=== PATIENT | male | born 1950 | race Caucasian/White ===

== ENCOUNTER 2017-01-17 16:24 | Emergency (ER) | payer MEDICARE, OTHER ==
[2017-01-17 16:30] VITALS: BP 143/83; PULSE 83; RESP 14; TEMP 98.5; O2SAT 99
--- NOTE | 2017-01-17 17:03 | C.PDOC ---
History Of Present Illness 66 yr old male presents to the ER requesting refills of endocet. Patient states he ran out yesterday and his PMD is out of town and is unable to get a new prescription until 01/29. Patient complains of chronic lower back pain. Denies fever, chills, chest pain SOB, weakness or numbness. REQUESTING REFILL OF ENDOCET. RAN OUT YESTERDAY. PMD IS OUT OF TOWN. UNABLE TO GET NEW RX UNTIL 01/29. CO CHRONIC LBP. EXAM NEG Time Seen by Provider: 01/17/17 16:58 Chief Complaint (Nursing): Med Refill History Per: Patient Onset/Duration Of Symptoms: Persistent (Chronic ) Current Symptoms Are (Timing): Still Present Past Medical History Reviewed: Historical Data, Nursing Documentation, Vital Signs Vital Signs: Last Vital Signs Temp 98.5 F 01/17/17 16:28 Pulse 83 01/17/17 16:28 Resp 14 01/17/17 16:28 BP 143/83 01/17/17 16:28 Pulse Ox 99 01/17/17 17:15 - Medical History PMH: Diabetes, HTN, Hypercholesterolemia Surgical History: Cholecystectomy (1994) - [facility] Procedures DETACHMENT AT RIGHT 5TH TOE, COMPLETE, OPEN APPROACH (02/18/16) EXCISION OF R FOOT SUBCU/FASCIA, OPEN APPROACH (03/13/16) EXCISION OF RIGHT METATARSAL, OPEN APPROACH (03/13/16) EXTRACTION OF R FOOT SUBCU/FASCIA, OPEN APPROACH (03/13/16) FLUOROSCOPY OF AORTA AND BILATERAL LOWER EXTREMITY ARTERIES (11/25/15) FLUOROSCOPY OF SUPERIOR VENA CAVA, GUIDANCE (02/18/16) INSERTION OF INFUSION DEV INTO SUP VENA CAVA, PERC APPROACH (02/18/16) Family History: States: Hypertension - Social History Hx Tobacco Use: Yes Hx Alcohol Use: No Hx Substance Use: No - Immunization History Hx Tetanus Toxoid Vaccination: Yes Hx Influenza Vaccination: Yes Hx Pneumococcal Vaccination: Yes Review Of Systems Except As Marked, All Systems Reviewed And Found Negative. Constitutional: Negative for: Fever, Chills Cardiovascular: Negative for: Chest Pain Respiratory: Negative for: Shortness of Breath Musculoskeletal: Positive for: Back Pain (Chronic lower back pain ) Neurological: Negative for: Weakness, Numbness Physical Exam - Physical Exam Appears: Well, Non-toxic, No Acute Distress Skin: Warm, Dry Head: Atraumatic, Normacephalic Extremity: Normal ROM, No Swelling Neurological/Psych: Oriented x3, Normal Speech, Normal Motor ED Course And Treatment O2 Sat by Pulse Oximetry: 99 Progress - Re-Evaluation Re-evaluation Note: [place] RX REVIEWED Filled Written Drug QTY Days Prescriber 01/16/2017 11/18/2016 ZOLPIDEM TARTRATE 10 MG TABLET 30.0 30 AN [facility] 01/16/2017 11/18/2016 ALPRAZOLAM 1 MG TABLET 60.0 30 AN [facility] [id number] 12/30/2016 12/27/2016 ENDOCET 10-325 MG TABLET 60.0 15 AN [facility] 12/17/2016 11/18/2016 ZOLPIDEM TARTRATE 10 MG TABLET 30.0 30 AN [facility] 12/17/2016 11/18/2016 ALPRAZOLAM 1 MG TABLET 60.0 30 AN [facility] [id number] 12/17/2016 12/13/2016 ENDOCET 10-325 MG TABLET 60.0 15 AN [facility] 11/19/2016 11/18/2016 ZOLPIDEM TARTRATE 10 MG TABLET 30.0 30 AN [facility] 11/19/2016 11/18/2016 ALPRAZOLAM 1 MG TABLET 60.0 30 AN [facility] [id number] 11/19/2016 11/19/2016 ENDOCET 10-325 MG TABLET 120.0 30 01/17/17 17:09 PT ADVISED OF [place] NARCOTIC LAW. PT NOW STATES DR MADRID IS NO LONGER HIS PMD AND STATES IS WAITING FOR NEW PMD. ADVISED STILL NOT ABLE TO FILL CHRONIC PAIN RX. 01/17/17 17:14 PT LEFT PRIOR TO RECEIVING DOSE, REGISTRATION. - Data Reviewed Data Reviewed: Other ([place]) Disposition Counseled Patient/Family Regarding: Diagnosis, Need For Followup - Disposition Referrals: YOUR,PMD [Other] Disposition: HOME/ ROUTINE Disposition Time: 17:10 Condition: GOOD Additional Instructions: USTED RUCKER SIDO ADVERTIDO DE LAS RESTRICCIONES DE DERECHO ESTATAL RELACIONADAS CON LA RECARGA DE MEDICINA DE DOLOR NARCOTICO. SEGUIMIENTO CON CABRERA PMD. Instructions: Chronic Back Pain (ED), Medicine Refill (ED) Print Language: MONGOLIAN - Clinical Impression Clinical Impression: Chronic pain, Medication refill - Scribe Statement The provider has reviewed the documentation as recorded by the Scribe Gaviota Burrell Provider Attestation: All medical record entries made by the Scribe were at my direction and personally dictated by me. I have reviewed the chart and agree that the record accurately reflects my personal performance of the history, physical exam, medical decision making, and the department course for this patient. I have also personally directed, reviewed, and agree with the discharge instructions and disposition.
[2017-01-17] MEDS ORDERED: Oxycodone/Acetaminophen 5/325 mg Tab PO STA (17:09)
== END 2017-01-17 17:20 | disposition home or self-care (01) ==
LOC: C.ER 16:24
DX: M54.5 Low back pain (principal); G89.29 Other chronic pain

== ENCOUNTER 2018-10-12 14:34 | Inpatient (IN) | payer MEDICARE, OTHER ==
[2018-10-12 15:04] VITALS: BMI 29.2
[2018-10-12] MEDS ORDERED: Sodium Chloride 0.9% 1,000 ML IV STA (15:54)
--- NOTE | 2018-10-12 15:56 | C.PDOC ---
History Of Present Illness 68 y/o M c PMHx DM p/w extremity cramps, numbness, and weakness x over 1 month. States gradually worsening to the extent that patient can no longer walk safely and has been falling frequently, most recently yesterday. Denies any injury from falls. Denies any asymmetrical symptoms. States symptoms began with a red eye, was seen by ophtho, and states during their evaluation, he had a blood pressure cuff used on his leg and the symptoms began after that. States could not go to [facility] because he can not safely walk to his office without falling. PMD [facility] Time Seen by Provider: 10/12/18 14:58 Chief Complaint (Nursing): Weakness/Neurological Deficit Past Medical History Vital Signs: Last Vital Signs Temp 98.1 F 10/12/18 15:04 Pulse 76 10/12/18 15:04 Resp 20 10/12/18 15:04 BP 156/74 H 10/12/18 15:04 Pulse Ox 99 10/12/18 15:04 - Medical History PMH: Diabetes, HTN, Hypercholesterolemia Denies: Chronic Kidney Disease Surgical History: Cholecystectomy (1994) - [facility] Procedures DETACHMENT AT RIGHT 5TH TOE, COMPLETE, OPEN APPROACH (02/18/16) EXCISION OF R FOOT SUBCU/FASCIA, OPEN APPROACH (03/13/16) EXCISION OF RIGHT METATARSAL, OPEN APPROACH (03/13/16) EXTRACTION OF R FOOT SUBCU/FASCIA, OPEN APPROACH (03/13/16) FLUOROSCOPY OF AORTA AND BILATERAL LOWER EXTREMITY ARTERIES (11/25/15) FLUOROSCOPY OF SUPERIOR VENA CAVA, GUIDANCE (02/18/16) INSERTION OF INFUSION DEV INTO SUP VENA CAVA, PERC APPROACH (02/18/16) Family History: States: Hypertension - Social History Hx Tobacco Use: Yes Hx Alcohol Use: No Hx Substance Use: No - Immunization History Hx Tetanus Toxoid Vaccination: Yes Hx Influenza Vaccination: Yes Hx Pneumococcal Vaccination: Yes Review Of Systems Except As Marked, All Systems Reviewed And Found Negative. Constitutional: Negative for: Fever Cardiovascular: Negative for: Chest Pain Physical Exam - Physical Exam Additional Physical Exam Comments: Gen: NAD Head: NC/AT Eyes: PERRL ENT: MMM Neck: Supple Chest: No tenderness CV: Regular rate Lungs: CTA b/l Abd: Soft, NT Back: No midline tenderness Extremities: No tenderness, FROM x 4 Skin: No rash Neuro: Alert, sensation to light touch bilaterally x 4. Moves all 4 extremities. Gait unsteady. ED Course And Treatment - Laboratory Results Result Diagrams: 10/12/18 16:05 10/12/18 16:05 O2 Sat by Pulse Oximetry: 99 Medical Decision Making Medical Decision Making: EKG Results NSR [address]/ T wave changes CT-Head Results Date of service: 10/12/2018 PROCEDURE: CT HEAD WITHOUT CONTRAST. HISTORY: extremity numbness, gait imbalance COMPARISON: None available. TECHNIQUE: Axial computed tomography images were obtained through the head/brain without intravenous contrast. Radiation dose: Total exam DLP = 1088.72 mGy-cm. This CT exam was performed using one or more of the following dose reduction techniques: Automated exposure control, adjustment of the mA and/or kV according to patient size, and/or use of iterative reconstruction technique. FINDINGS: HEMORRHAGE: No intracranial hemorrhage. BRAIN: Diffuse atrophy with prominence of the ventricles and sulci noted. No mass effect or edema. Intracranial atherosclerosis. Scattered periventricular and subcortical white matter hypodensities, which are nonspecific, but often seen with chronic microvascular ischemic disease. 3 mm right basal ganglia lacunar type infarct. Please note that MRI with diffusion imaging is more sensitive in the detection of acute ischemic event. VENTRICLES: No hydrocephalus. CALVARIUM: Unremarkable. PARANASAL SINUSES: Unremarkable as visualized. No significant inflammatory changes. MASTOID AIR CELLS: Unremarkable as visualized. No inflammatory changes. OTHER FINDINGS: None. IMPRESSION: Generalized atrophy. Scattered nonspecific white matter changes. 3 mm right basal ganglia lacunar type infarct appears chronic. Patient unsafe for discharge, could not ambulate in ED. Dr. Duque accepts patient to his service. vice president planning paged. Disposition - Disposition Disposition: HOSPITALIZED Disposition Time: 16:55 Condition: STABLE Forms: [employer] (Kyrgyz) - Clinical Impression Clinical Impression: Decreased ambulation status
[2018-10-12 16:09] LABS: BASO % 0.2 % (0.0-2.0); EOS # 0.1 K/uL (0.0-0.7); EOS % 0.5 % (0.0-4.0); LYMPH # 1.6 K/uL (1.0-4.3); LYMPH % 16.3 % (20.0-40.0); MEAN CORPUSCULAR HEMOGLOBIN 30.2 pg (27.0-31.0); MEAN PLATELET VOLUME 9.3 fL (7.2-11.7); MONO # 0.4 K/uL (0.0-0.8); MONO % 4.3 % (0.0-10.0); NEUT # 7.5 K/uL (1.8-7.0); NEUT % 78.7 % (50.0-75.0); RBC 4.69 Mil/uL (4.40-5.90); RED CELL DISTRIBUTION WIDTH 13.7 % (11.5-14.5); WHITE BLOOD COUNT 9.5 K/uL (4.8-10.8)
[2018-10-12 16:15] LABS: HEMOGLOBIN 14.2 g/dL (12.0-18.0); MEAN CELL VOLUME 91.6 fL (80.0-94.0)
[2018-10-12 16:17] LABS: INR 1.1; PROTHROMBIN TIME 11.9 SECONDS (9.7-12.2)
[2018-10-12 16:28] LABS: ALB/GLOB RATIO 1.6 (1.0-2.1); ALBUMIN 4.8 g/dL (3.5-5.0); ALT/SGPT 26 U/L (21-72); AST/SGOT 34 U/L (17-59); BLOOD UREA NITROGEN 21 mg/dL (9-20); CALCIUM 10.2 mg/dl (8.6-10.4); GFR NON-AFRICAN AMERICAN > 60
[2018-10-12 16:38] LABS: B-TYPE NATRIURETIC PEPTIDE 79.4 pg/mL (0-900)
--- NOTE | 2018-10-12 16:38 | CT ---
Date of service: 10/12/2018 PROCEDURE: CT HEAD WITHOUT CONTRAST. HISTORY: extremity numbness, gait imbalance COMPARISON: None available. TECHNIQUE: Axial computed tomography images were obtained through the head/brain without intravenous contrast. Radiation dose: Total exam DLP = 1088.72 mGy-cm. This CT exam was performed using one or more of the following dose reduction techniques: Automated exposure control, adjustment of the mA and/or kV according to patient size, and/or use of iterative reconstruction technique. FINDINGS: HEMORRHAGE: No intracranial hemorrhage. BRAIN: Diffuse atrophy with prominence of the ventricles and sulci noted. No mass effect or edema. Intracranial atherosclerosis. Scattered periventricular and subcortical white matter hypodensities, which are nonspecific, but often seen with chronic microvascular ischemic disease. 3 mm right basal ganglia lacunar type infarct. Please note that MRI with diffusion imaging is more sensitive in the detection of acute ischemic event. VENTRICLES: No hydrocephalus. CALVARIUM: Unremarkable. PARANASAL SINUSES: Unremarkable as visualized. No significant inflammatory changes. MASTOID AIR CELLS: Unremarkable as visualized. No inflammatory changes. OTHER FINDINGS: None. IMPRESSION: Generalized atrophy. Scattered nonspecific white matter changes. 3 mm right basal ganglia lacunar type infarct appears chronic.
[2018-10-12 16:41] LABS: CK-MB 2.32 ng/mL (0.0-3.38)
--- NOTE | 2018-10-12 17:40 | RAD ---
Date of service: 10/12/2018 HISTORY: extremity numbness/cramping COMPARISON: 03/13/2016 FINDINGS: LUNGS: No active pulmonary disease. PLEURA: No significant pleural effusion identified, no pneumothorax apparent. CARDIOVASCULAR: No atherosclerotic calcification present No radiographic findings to suggest acute or significant cardiovascular disease. OSSEOUS STRUCTURES: No significant abnormalities. VISUALIZED UPPER ABDOMEN: Normal. OTHER FINDINGS: None. IMPRESSION: No active disease. No significant interval change compared to the prior examination(s).
[2018-10-12 17:44] LABS: SQUAMOUS EPITHIAL < 1 /hpf (0-5); URINE BILIRUBIN NEGATIVE (NEGATIVE); URINE BLOOD NEGATIVE (NEGATIVE); URINE CLARITY Hazy (Clear); URINE COLOR Yellow (YELLOW); URINE GLUCOSE (UA) 3+ mg/dL (Normal); URINE LEUKOCYTE ESTERASE NEG Leu/uL (Negative); URINE PROTEIN 2+ mg/dL (NEGATIVE)
[2018-10-12] MEDS ORDERED: Dextrose 50% SYRINGE Inj (50 ml) IV PRN (18:25)
[2018-10-12] MEDS ORDERED: Glucagon Recombinant 1 mg Inj IM PRN (18:25)
--- NOTE | 2018-10-12 18:34 | CP.PCM.HP ---
History of Present Illness - History of Present Illness History of Present Illness: 68 year old male with past medical history of Diabetes Type II; HTN; Stroke (2018); HLD; Glaucoma; neuropathy presents to the ER with lower extremity weakness. Patient states for the past few months he has been having difficulty walking. However the last 3 weeks he feels like he cannot stand by himself as his legs feel week. He states he usually uses a 3 point cane but that has not been helping him at all. He denies chest pain, shortness of breath, palpitations, numbness or tingling, nausea, vomiting, fever, chills, diarrhea or constipation. PMD: Dr. 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 bone culture taken of right 5th metatarsal head Medications: Enalapril 20mg po daily; Crestor 10mg po HS; Aspirin 81mg daily; Insulin Allergies: NKDA Social History: Lives alone in apartment with many stairs; used to smoke for 15 years but has quit for 15+ years; denies alcohol or illicit drug use. Present on Admission - Present on Admission Any Indicators Present on Admission: No Review of Systems - Constitutional Constitutional: absent: Chills, Fever - Cardiovascular Cardiovascular: absent: Chest Pain, Dyspnea, Leg Edema, Palpitations - Respiratory Respiratory: absent: Dyspnea - Gastrointestinal Gastrointestinal: absent: Abdominal Pain, Constipation, Diarrhea, Nausea, Vomiting - Genitourinary Genitourinary: absent: Dysuria - Musculoskeletal Musculoskeletal: Limited Range of Motion, Muscle Weakness. absent: Numbness, T ingling - Neurological Neurological: Weakness. absent: Dizziness, Numbness, Headaches, Syncope, Tingling Past Patient History - Infectious Disease Hx of Infectious Diseases: None - Past Medical History & Family History Past Medical History?: Yes - Past Social History Smoking Status: Former Smoker - CARDIAC Hx Hypercholesterolemia: Yes Hx Hypertension: Yes - PULMONARY Hx Respiratory Disorders: No - NEUROLOGICAL Hx Neurological Disorder: No - HEENT Hx HEENT Problems: No - RENAL Hx Chronic Kidney Disease: No - ENDOCRINE/METABOLIC Hx Diabetes Mellitus Type 2: Yes - HEMATOLOGICAL/ONCOLOGICAL Hx Blood Disorders: No - INTEGUMENTARY Hx Dermatological Problems: No - MUSCULOSKELETAL/RHEUMATOLOGICAL Hx Musculoskeletal Disorders: No Hx Falls: No - GASTROINTESTINAL Hx Gastrointestinal Disorders: No - GENITOURINARY/GYNECOLOGICAL Hx Genitourinary Disorders: No - PSYCHIATRIC Hx Substance Use: No - SURGICAL HISTORY Hx Cholecystectomy: Yes (1994) - ANESTHESIA Hx Anesthesia: Yes Hx Anesthesia Reactions: No Hx Malignant Hyperthermia: No Meds Allergies/Adverse Reactions: Allergies Allergy/AdvReac Type Severity Reaction Status Date / Time No Known Allergies Allergy Verified 10/12/18 15:02 Physical Exam - Constitutional Appears: Non-toxic, No Acute Distress, Older Than Stated Age - Head Exam Head Exam: ATRAUMATIC, NORMAL INSPECTION - Eye Exam Eye Exam: EOMI, Normal appearance, PERRL Pupil Exam: NORMAL ACCOMODATION - ENT Exam ENT Exam: Mucous Membranes Moist - Respiratory Exam Respiratory Exam: Clear to Auscultation Bilateral, NORMAL BREATHING PATTERN - Cardiovascular Exam Cardiovascular Exam: REGULAR RHYTHM, +S1, +S2. absent: JVD - GI/Abdominal Exam GI & Abdominal Exam: Normal Bowel Sounds, Soft. absent: Tenderness - Extremities Exam Extremities exam: Positive for: normal capillary refill, pedal pulses present. Negative for: full ROM, pedal edema, tenderness Additional comments: Right foot s/p remval of 5th metatarsal (02/2016) - Neurological Exam Neurological exam: Alert, CN II-XII Intact, Oriented x3 - Expanded Neurological Exam Expanded Patient oriented to: person, place, time Cranial nerves: EOM's Intact: Normal Upper motor neuron: Babinski Sign: Normal Neuro motor strength exam: Left Upper Extremity: 3, Right Upper Extremity: 3, Left Lower Extremity: 2/1, Right Lower Extremity: 2/1 Coma Scale Eye Opening: SPONTANEOUS Coma Scale Motor Response: OBEYS COMMANDS Coma Scale Verbal: Oriented Coma Scale Total: 15 - Psychiatric Exam Psychiatric exam: Anxious - Skin Skin Exam: Dry, Normal Color Results - Vital Signs Recent Vital Signs: Last Vital Signs Temp 98.7 F 10/12/18 18:00 Pulse 62 10/12/18 18:00 Resp 18 10/12/18 18:00 BP 169/76 H 10/12/18 18:00 Pulse Ox 99 10/12/18 18:00 - Labs Result Diagrams: 10/12/18 16:05 10/12/18 16:05 Labs: Laboratory Results - last 24 hr 10/12/18 10/12/18 10/12/18 16:05 16:05 16:05 WBC 9.5 RBC 4.69 Hgb 14.2 D Hct 43.0 MCV 91.6 D MCH 30.2 MCHC 33.0 RDW 13.7 Plt Count 247 D MPV 9.3 Neut % (Auto) 78.7 H Lymph % (Auto) 16.3 L Grady % (Auto) 4.3 Eos % (Auto) 0.5 Baso % (Auto) 0.2 Neut # (Auto) 7.5 H Lymph # (Auto) 1.6 Grady # (Auto) 0.4 Eos # (Auto) 0.1 Baso # (Auto) 0.0 PT 11.9 INR 1.1 APTT 32 Sodium 137 Potassium 4.3 Chloride 98 Carbon Dioxide 30 Anion Gap 14 BUN 21 H Creatinine 1.1 Est GFR ( Amer) > 60 Est GFR (Non-Af Amer) > 60 Random Glucose 274 H D Calcium 10.2 Total Bilirubin 0.5 AST 34 ALT 26 Alkaline Phosphatase 64 Total Creatine Kinase 211 H CK-MB (Mass) 2.32 Troponin I < 0.0120 NT-Pro-B Natriuret Pep 79.4 Total Protein 7.8 Albumin 4.8 Globulin 3.0 Albumin/Globulin Ratio 1.6 Urine Color Urine Clarity Urine pH Ur Specific Calmar Urine Protein Urine Glucose (UA) Urine Ketones Urine Blood Urine Nitrate Urine Bilirubin Urine Urobilinogen Ur Leukocyte Esterase Urine WBC (Auto) Urine RBC (Auto) Ur Squamous Epith Cells 10/12/18 17:16 WBC RBC Hgb Hct MCV MCH MCHC RDW Plt Count MPV Neut % (Auto) Lymph % (Auto) Grady % (Auto) Eos % (Auto) Baso % (Auto) Neut # (Auto) Lymph # (Auto) Grady # (Auto) Eos # (Auto) Baso # (Auto) PT INR APTT Sodium Potassium Chloride Carbon Dioxide Anion Gap BUN Creatinine Est GFR ( Amer) Est GFR (Non-Af Amer) Random Glucose Calcium Total Bilirubin AST ALT Alkaline Phosphatase Total Creatine Kinase CK-MB (Mass) Troponin I NT-Pro-B Natriuret Pep Total Protein Albumin Globulin Albumin/Globulin Ratio Urine Color Yellow Urine Clarity Hazy Urine pH 5.0 Ur Specific Calmar 1.022 Urine Protein 2+ H Urine Glucose (UA) 3+ H Urine Ketones Trace Urine Blood Negative Urine Nitrate Negative Urine Bilirubin Negative Urine Urobilinogen 2.0 Ur Leukocyte Esterase Neg Urine WBC (Auto) 1 Urine RBC (Auto) 1 Ur Squamous Epith Cells < 1 Assessment & Plan - Assessment and Plan (Free Text) Assessment: Upper/Lower Extremity Weakness - secondary to possible TIA - Neuro Consult: Dr. Jackson --> help appreciated - Head CT: No intracranial hemorrhage. Generalized atrophy. Scattered nonspecific white matter changes. 3 mm right basal ganglia lacunar type infarct appears chronic. - f/u venous doppler - Neuro Checks q4h - f/u RPR; B12 - PT/OT Eval/Treat - Aspirin 81mg daily Diabetes mellitus with neuropathy - insulin sliding scale coverage - Lantus 10units HS - Crestor 10mg HS - Accuchecks - Hypoglycemia Protocol Hypertension - Enalapril 20mg daily Prophylaxis - GI prophylaxis: not indicated - Heparin SC q8h Case discussed with Dr. Dunia Perez PGY-2
[2018-10-12] MEDS: (Novolin R) Insulin Human Regular 100 units/ml vial SC SCH (21:24)
[2018-10-12] MEDS: (Lantus) Insulin Glargine, Recombinant SC SCH (21:34)
[2018-10-13 07:52] LABS: BASO % 0.4 % (0.0-2.0); EOS # 0.1 K/uL (0.0-0.7); HEMOGLOBIN 13.4 g/dL (12.0-18.0); LYMPH # 1.6 K/uL (1.0-4.3); LYMPH % 18.4 % (20.0-40.0); MEAN CELL VOLUME 91.5 fL (80.0-94.0); MEAN CORPUSCULAR HEMOGLOBIN 30.5 pg (27.0-31.0); MEAN CORPUSCULAR HGB CONC 33.4 g/dL (33.0-37.0); MEAN PLATELET VOLUME 9.3 fL (7.2-11.7); MONO # 0.4 K/uL (0.0-0.8); MONO % 4.9 % (0.0-10.0); NEUT # 6.7 K/uL (1.8-7.0); NEUT % 75.3 % (50.0-75.0); RBC 4.38 Mil/uL (4.40-5.90); RED CELL DISTRIBUTION WIDTH 13.7 % (11.5-14.5); WHITE BLOOD COUNT 8.9 K/uL (4.8-10.8)
[2018-10-13] MEDS: (Novolin R) Insulin Human Regular 100 units/ml vial SC SCH ×4 (08:01→21:44)
[2018-10-13 08:03] LABS: ALB/GLOB RATIO 1.6 (1.0-2.1); ALBUMIN 4.1 g/dL (3.5-5.0); ALT/SGPT 26 U/L (21-72); AST/SGOT 34 U/L (17-59); BLOOD UREA NITROGEN 26 mg/dL (9-20); CALCIUM 9.6 mg/dl (8.6-10.4); GFR NON-AFRICAN AMERICAN > 60; HDL CHOLESTEROL 44 mg/dL (30-70)
[2018-10-13 08:13] LABS: LDL CHOLESTEROL 63 mg/dL (0-129)
--- NOTE | 2018-10-13 11:37 | CP.PCM.PN ---
Subjective - Date & Time of Evaluation Date of Evaluation: 10/13/18 Time of Evaluation: 11:33 - Subjective Subjective: Augustine Pringle PGY1 Progress Note for Dr. Duque Pt reports continuation of his lower and upper extremity weakness, which has been going on for the past 3 months but worsened over the past couple of weeks. He reports lower back pain as well. He also complains of numbness and tingling in the b/l hands and feet. He says he is not able to walk up stairs. He denies headache, dizziness, chest pain, shortness of breath, urinary or bowel incontinence, nausea, vomiting, diarrhea, difficulty speaking or swallowing. Objective - Vital Signs/Intake and Output Vital Signs (last 24 hours): Temp Pulse Resp BP Pulse Ox 97.7 F 68 20 149/62 100 10/13/18 07:25 10/13/18 07:25 10/13/18 07:25 10/13/18 09:39 10/13/18 07:25 Intake and Output: 10/13/18 10/13/18 06:59 18:59 Intake Total 360 Output Total 950 Balance -590 - Medications Medications: Current Medications Aspirin (Ecotrin) 81 mg PO DAILY [facility] Last Admin: 10/13/18 09:39 Dose: 81 mg Dextrose (Dextrose 50% Inj) 0 ml IV STAT PRN; Protocol PRN Reason: Hypoglycemia Protocol Dextrose (Glutose 15) 0 gm PO ONCE PRN; Protocol PRN Reason: Hypoglycemia Protocol Enalapril Maleate (Vasotec) 20 mg PO DAILY [facility] Last Admin: 10/13/18 09:39 Dose: 20 mg Glucagon (Glucagen Diagnostic Kit) 0 mg IM STAT PRN; Protocol PRN Reason: Hypoglycemia Protocol Heparin Sodium (Porcine) (Heparin) 5,000 units SC Q8 [facility] Last Admin: 10/13/18 06:16 Dose: 5,000 units Dextrose (Dextrose 5% In Water 1000 Ml) 1,000 mls @ 0 mls/hr IV .Q0M PRN; Protocol PRN Reason: Hypoglycemia Protocol Influenza Virus Vaccine (Flucelvax Quad 9808-0060 Syr) 60 mcg IM .ONCE ONE Stop: 10/14/18 12:01 Insulin Glargine (Lantus) 10 unit SC HS [facility] Last Admin: 10/12/18 21:34 Dose: 10 unit Insulin Human Regular (Novolin R) 0 unit SC ACHS [facility]; Protocol Last Admin: 10/13/18 08:01 Dose: 2 unit Pneumococcal Polyvalent Vaccine (Pneumovax 23 Vaccine) 0.5 ml IM .ONCE ONE Stop: 10/14/18 10:01 Rosuvastatin Calcium (Crestor) 10 mg PO [facility] Last Admin: 10/12/18 21:34 Dose: 10 mg - Labs Labs: 10/13/18 07:41 10/13/18 07:41 PT 11.9 SECONDS (9.7-12.2) 10/12/18 16:05 INR 1.1 10/12/18 16:05 APTT 32 SECONDS (21-34) 10/12/18 16:05 - Constitutional Appears: Well, No Acute Distress - Head Exam Head Exam: ATRAUMATIC, NORMOCEPHALIC - Eye Exam Eye Exam: EOMI, Normal appearance, PERRL - ENT Exam ENT Exam: Mucous Membranes Moist - Respiratory Exam Respiratory Exam: Clear to Ausculation Bilateral, NORMAL BREATHING PATTERN. absent: Rales, Rhonchi, Wheezes - Cardiovascular Exam Cardiovascular Exam: REGULAR RHYTHM, +S1, +S2. absent: Gallop, Rubs, Murmur - GI/Abdominal Exam GI & Abdominal Exam: Soft, Normal Bowel Sounds. absent: Distended, Tenderness - Extremities Exam Extremities Exam: Normal Inspection - Back Exam Back Exam: paraspinal tenderness - Neurological Exam Neurological Exam: Alert, Awake, Oriented x3 Neuro motor strength exam: Left Upper Extremity: 4, Right Upper Extremity: 4, Left Lower Extremity: 3, Right Lower Extremity: 3 - Psychiatric Exam Psychiatric exam: Normal Affect, Normal Mood - Skin Skin Exam: Normal Color Assessment and Plan - Assessment and Plan (Free Text) Assessment: 68yo M with PMH of DM2, CVA, HTN, HLD, glaucoma, neuropathy presenting with lower extremity weakness, admitted for CVA r/o. CT showing chronic changes. Plan for [facility]. Plan: Upper/Lower Extremity Weakness - Neuro Consult: Dr. Jackson --> help appreciated - Head CT: No intracranial hemorrhage. Generalized atrophy. Scattered nonspecific white matter changes. 3 mm right basal ganglia lacunar type infarct appears chronic. - f/u venous doppler - f/u MRI L-spine - Neuro Checks q4h - f/u RPR - B12 wnl - PT/OT Eval/Treat - Aspirin 81mg daily Diabetes mellitus with neuropathy - HbA1c 11.5 - insulin sliding scale coverage - Lantus 10units HS - Accuchecks - Hypoglycemia Protocol HLD - high TG - Crestor 10mg HS Hypertension - Enalapril 20mg daily Prophylaxis - GI prophylaxis: not indicated - Heparin SC q8h CCD Dispo: Follow up remaining imaging. Plan for [facility] upon d/c Patient seen and case discussed with Dr. Duque
--- NOTE | 2018-10-13 12:12 | CP.PCM.CON ---
History of Present Illness - History of Present Illness History of Present Illness: Neurology consult dictated. Mr. Pelaez appears to have acute weakness, proximal in lower limbs bl. Plan: 1. MRI L s spine stat 2. Physical therapy Thank you Dr. Jackson Neurology Past Patient History - Infectious Disease Hx of Infectious Diseases: None - Past Medical History & Family History Past Medical History?: Yes - Past Social History Smoking Status: Former Smoker - CARDIAC Hx Hypercholesterolemia: Yes Hx Hypertension: Yes - PULMONARY Hx Respiratory Disorders: No - NEUROLOGICAL Hx Neurological Disorder: No - HEENT Hx HEENT Problems: No - RENAL Hx Chronic Kidney Disease: No - ENDOCRINE/METABOLIC Hx Diabetes Mellitus Type 2: Yes - HEMATOLOGICAL/ONCOLOGICAL Hx Blood Disorders: No - INTEGUMENTARY Hx Dermatological Problems: No - MUSCULOSKELETAL/RHEUMATOLOGICAL Hx Musculoskeletal Disorders: No Hx Falls: No - GASTROINTESTINAL Hx Gastrointestinal Disorders: No - GENITOURINARY/GYNECOLOGICAL Hx Genitourinary Disorders: No - PSYCHIATRIC Hx Substance Use: No - SURGICAL HISTORY Hx Cholecystectomy: Yes (1994) - ANESTHESIA Hx Anesthesia: Yes Hx Anesthesia Reactions: No Hx Malignant Hyperthermia: No Meds Allergies/Adverse Reactions: Allergies Allergy/AdvReac Type Severity Reaction Status Date / Time No Known Allergies Allergy Verified 10/12/18 15:02 - Medications Medications: Current Medications Aspirin (Ecotrin) 81 mg PO DAILY [facility] Last Admin: 10/13/18 09:39 Dose: 81 mg Dextrose (Dextrose 50% Inj) 0 ml IV STAT PRN; Protocol PRN Reason: Hypoglycemia Protocol Dextrose (Glutose 15) 0 gm PO ONCE PRN; Protocol PRN Reason: Hypoglycemia Protocol Enalapril Maleate (Vasotec) 20 mg PO DAILY [facility] Last Admin: 10/13/18 09:39 Dose: 20 mg Glucagon (Glucagen Diagnostic Kit) 0 mg IM STAT PRN; Protocol PRN Reason: Hypoglycemia Protocol Heparin Sodium (Porcine) (Heparin) 5,000 units SC Q8 [facility] Last Admin: 10/13/18 06:16 Dose: 5,000 units Dextrose (Dextrose 5% In Water 1000 Ml) 1,000 mls @ 0 mls/hr IV .Q0M PRN; Protocol PRN Reason: Hypoglycemia Protocol Influenza Virus Vaccine (Flucelvax Quad [id number] Syr) 60 mcg IM .ONCE ONE Stop: 10/14/18 12:01 Insulin Glargine (Lantus) 10 unit SC [facility] Last Admin: 10/12/18 21:34 Dose: 10 unit Insulin Human Regular (Novolin R) 0 unit SC ACHS [facility]; Protocol Last Admin: 10/13/18 08:01 Dose: 2 unit Pneumococcal Polyvalent Vaccine (Pneumovax 23 Vaccine) 0.5 ml IM .ONCE ONE Stop: 10/14/18 10:01 Rosuvastatin Calcium (Crestor) 10 mg PO HS [facility] Last Admin: 10/12/18 21:34 Dose: 10 mg Results - Vital Signs Recent Vital Signs: Last Vital Signs Temp 97.7 F 10/13/18 07:25 Pulse 68 10/13/18 07:25 Resp 20 10/13/18 07:25 BP 149/62 10/13/18 09:39 Pulse Ox 100 10/13/18 07:25 - Labs Result Diagrams: 10/13/18 07:41 10/13/18 07:41 Labs: Laboratory Results - last 24 hr 10/12/18 10/12/18 10/12/18 14:58 16:05 16:05 WBC 9.5 RBC 4.69 Hgb 14.2 D Hct 43.0 MCV 91.6 D MCH 30.2 MCHC 33.0 RDW 13.7 Plt Count 247 D MPV 9.3 Neut % (Auto) 78.7 H Lymph % (Auto) 16.3 L [place] % (Auto) 4.3 Eos % (Auto) 0.5 Baso % (Auto) 0.2 Neut # (Auto) 7.5 H Lymph # (Auto) 1.6 [place] # (Auto) 0.4 Eos # (Auto) 0.1 Baso # (Auto) 0.0 PT 11.9 INR 1.1 APTT 32 Sodium Potassium Chloride Carbon Dioxide Anion Gap BUN Creatinine Est GFR ( Amer) Est GFR (Non-Af Amer) POC Glucose (mg/dL) 272 H Random Glucose Hemoglobin A1c Calcium Phosphorus Magnesium Total Bilirubin AST ALT Alkaline Phosphatase Total Creatine Kinase CK-MB (Mass) Troponin I NT-Pro-B Natriuret Pep Total Protein Albumin Globulin Albumin/Globulin Ratio Triglycerides Cholesterol LDL Cholesterol Direct HDL Cholesterol Vitamin B12 Urine Color Urine Clarity Urine pH Ur Specific [place] Urine Protein Urine Glucose (UA) Urine Ketones Urine Blood Urine Nitrate Urine Bilirubin Urine Urobilinogen Ur Leukocyte Esterase Urine WBC (Auto) Urine RBC (Auto) Ur Squamous Epith Cells 02/10/12/18 10/12/18 16:05 17:16 21:11 WBC RBC Hgb Hct MCV MCH MCHC RDW Plt Count MPV Neut % (Auto) Lymph % (Auto) [place] % (Auto) Eos % (Auto) Baso % (Auto) Neut # (Auto) Lymph # (Auto) [place] # (Auto) Eos # (Auto) Baso # (Auto) PT INR APTT Sodium 137 Potassium 4.3 Chloride 98 Carbon Dioxide 30 Anion Gap 14 BUN 21 H Creatinine 1.1 Est GFR ( Amer) > 60 Est GFR (Non-Af Amer) > 60 POC Glucose (mg/dL) 262 H Random Glucose 274 H D Hemoglobin A1c Calcium 10.2 Phosphorus Magnesium Total Bilirubin 0.5 AST 34 ALT 26 Alkaline Phosphatase 64 Total Creatine Kinase 211 H CK-MB (Mass) 2.32 Troponin I < 0.0120 NT-Pro-B Natriuret Pep 79.4 Total Protein 7.8 Albumin 4.8 Globulin 3.0 Albumin/Globulin Ratio 1.6 Triglycerides Cholesterol LDL Cholesterol Direct HDL Cholesterol Vitamin B12 Urine Color Yellow Urine Clarity Hazy Urine pH 5.0 Ur Specific [place] 1.022 Urine Protein 2+ H Urine Glucose (UA) 3+ H Urine Ketones Trace Urine Blood Negative Urine Nitrate Negative Urine Bilirubin Negative Urine Urobilinogen 2.0 Ur Leukocyte Esterase Neg Urine WBC (Auto) 1 Urine RBC (Auto) 1 Ur Squamous Epith Cells < 1 10/13/18 10/13/18 10/13/18 06:34 07:41 07:41 WBC 8.9 RBC 4.38 L Hgb 13.4 Hct 40.1 MCV 91.5 MCH 30.5 MCHC 33.4 RDW 13.7 Plt Count 225 MPV 9.3 Neut % (Auto) 75.3 H Lymph % (Auto) 18.4 L [place] % (Auto) 4.9 Eos % (Auto) 1.0 Baso % (Auto) 0.4 Neut # (Auto) 6.7 Lymph # (Auto) 1.6 [place] # (Auto) 0.4 Eos # (Auto) 0.1 Baso # (Auto) 0.0 PT INR APTT Sodium 136 Potassium 4.2 Chloride 103 Carbon Dioxide 28 Anion Gap 9 L BUN 26 H Creatinine 1.0 Est GFR ( Amer) > 60 Est GFR (Non-Af Amer) > 60 POC Glucose (mg/dL) 175 H Random Glucose 153 H D Hemoglobin A1c Calcium 9.6 Phosphorus 3.3 Magnesium 1.9 Total Bilirubin 0.3 AST 34 ALT 26 Alkaline Phosphatase 67 Total Creatine Kinase CK-MB (Mass) Troponin I NT-Pro-B Natriuret Pep Total Protein 6.6 Albumin 4.1 Globulin 2.6 Albumin/Globulin Ratio 1.6 Triglycerides 210 H Cholesterol 126 LDL Cholesterol Direct 63 HDL Cholesterol 44 Vitamin B12 972 H Urine Color Urine Clarity Urine pH Ur Specific [place] Urine Protein Urine Glucose (UA) Urine Ketones Urine Blood Urine Nitrate Urine Bilirubin Urine Urobilinogen Ur Leukocyte Esterase Urine WBC (Auto) Urine RBC (Auto) Ur Squamous Epith Cells 10/13/18 10/13/18 07:41 11:46 WBC RBC Hgb Hct MCV MCH MCHC RDW Plt Count MPV Neut % (Auto) Lymph % (Auto) [place] % (Auto) Eos % (Auto) Baso % (Auto) Neut # (Auto) Lymph # (Auto) [place] # (Auto) Eos # (Auto) Baso # (Auto) PT INR APTT Sodium Potassium Chloride Carbon Dioxide Anion Gap BUN Creatinine Est GFR ( Amer) Est GFR (Non-Af Amer) POC Glucose (mg/dL) 261 H Random Glucose Hemoglobin A1c 11.5 H Calcium Phosphorus Magnesium Total Bilirubin AST ALT Alkaline Phosphatase Total Creatine Kinase CK-MB (Mass) Troponin I NT-Pro-B Natriuret Pep Total Protein Albumin Globulin Albumin/Globulin Ratio Triglycerides Cholesterol LDL Cholesterol Direct HDL Cholesterol Vitamin B12 Urine Color Urine Clarity Urine pH Ur Specific [place] Urine Protein Urine Glucose (UA) Urine Ketones Urine Blood Urine Nitrate Urine Bilirubin Urine Urobilinogen Ur Leukocyte Esterase Urine WBC (Auto) Urine RBC (Auto) Ur Squamous Epith Cells
--- NOTE | 2018-10-13 13:06 | VASCLAB ---
Date of service: 10/13/2018 PROCEDURE: Lower Extremity Venous Duplex Exam. HISTORY: LE weakness PRIORS: None. TECHNIQUE: Bilateral common femoral, femoral, popliteal and posterior tibial, peroneal and great saphenous veins were evaluated. Flow was assessed with color Doppler, compressibility, assessment of phasic flow and augmentation response. Report prepared by Flip Ayala, BS, RVT FINDINGS: RIGHT: 1. Common Femoral Vein: 1.1. Compressibility - Fully compressible: Thrombus - None : Flow - Phasic: Augmentation -Normal: Reflux - None. 2. Femoral Vein: 2.1. Compressibility - Fully compressible: Thrombus - None : Flow - Phasic: Augmentation -Normal: Reflux - None. 3. Popliteal Vein: 3.1. Compressibility - Fully compressible: Thrombus - None : Flow - Phasic: Augmentation -Normal: Reflux - None. 4. Posterior Tibial Vein: 4.1. Compressibility - Fully compressible: Thrombus - None: Flow - Phasic: Augmentation -Normal: Reflux - None. 5. Peroneal Vein: 5.1. Compressibility - Fully compressible: Thrombus - None: Flow - Phasic: Augmentation -Normal: Reflux - None. 6. Great Saphenous Vein: 6.1. Compressibility - Fully compressible: Thrombus - None: Flow - Phasic: Augmentation - Normal: Reflux - None. LEFT: 1. Common Femoral Vein: 1.1. Compressibility - Fully compressible: Thrombus - None: Flow - Phasic: Augmentation -Normal: Reflux - None. 2. Femoral Vein: 2.1. Compressibility - Fully compressible: Thrombus - None: Flow - Phasic: Augmentation -Normal: Reflux - None. 3. Popliteal Vein: 3.1. Compressibility - Fully compressible: Thrombus - None : Flow - Phasic: Augmentation -Normal: Reflux - None. 4. Posterior Tibial Vein: 4.1. Compressibility - Fully compressible: Thrombus - None: Flow - Phasic: Augmentation -Normal: Reflux - None. 5. Peroneal Vein: 5.1. Compressibility - Fully compressible: Thrombus - None: Flow - Phasic: Augmentation -Normal: Reflux - None. 6. Great Saphenous Vein: 6.1. Compressibility - Fully compressible: Thrombus - None: Flow - Phasic: Augmentation - Normal: Reflux - None. OTHER FINDINGS: Right: None significant. Left: None significant. IMPRESSION: Right: No evidence of deep or superficial vein thrombosis of the right lower extremity. Normal valve function noted of the right side. Left: No evidence of deep or superficial vein thrombosis of the left lower extremity. Normal valve function noted of the left side.
--- NOTE | 2018-10-13 15:40 | MRI ---
Date of service: 10/13/2018 PROCEDURE: MR LUMBAR SPINE WITH AND WITHOUT CONTRAST HISTORY: weakness and inability to walk COMPARISON: None available. TECHNIQUE: Multiecho multiplanar sequences were performed through the lumbar spine with and without the use of intravenous contrast. FINDINGS: Lumbar curvature is interrupted by grade 1 spondylolisthesis at L4-5 with L4 anterior to L5 mildly. This on the basis of gross facet joint degenerative change. No spondylolysis. Disc height loss is severe here. Diffuse disc desiccation is appreciated throughout the lumbar spine. No additional spondylolisthesis. Vertebral body disc interspace heights are otherwise normal throughout the remainder. Marrow signal is normal with exception of a benign hemangioma occupying the majority of L2 and a small one at the right side of L5 with both suppressing on STIR imaging. Conus medullaris unremarkable at the level of T12-L1 disc interspace. Paraspinal soft tissues are unremarkable. No suspicious intrathecal or epidural enhancement identified throughout. Incidental note is made of distended urinary bladder. T12-L1: No disc herniation, spinal canal stenosis or neural foraminal narrowing. L1-2: No disc herniation, spinal canal stenosis or neural foraminal narrowing. Limited disc bulging is appreciated without significant stenosis occurring. L2-3: No disc herniation, spinal canal stenosis or neural foraminal narrowing. L3-4: A circumferential disc bulge is appreciate without disc herniation. Facet arthropathy appears moderate in severity resulting in mild central canal stenosis but no significant neural foraminal stenosis. L4-5: Spondylolisthesis, generalized disc bulging and gross facet joint degenerative arthropathy combine to result in a high-grade central canal stenosis at L4-5 with no CSF detected at this level. Moderate to severe right and moderate left neural foraminal stenosis identified. No definitive disc herniation appreciated. L5-S1: Circumferential disc bulge is appreciated with asymmetric facet joint degenerative changes appearing moderate resulting in borderline central stenosis. Left lateral recess is stenosed more so than the right due to asymmetry in facet arthropathy. Mild left and borderline right neural foraminal stenosis identified. OTHER FINDINGS: None. IMPRESSION: 1. High-grade central canal stenosis L4-5 due to grade 1 spondylolisthesis, generalized disc bulging and gross facet joint degenerative arthropathy. No disc herniation. 2. Multilevel degenerative neural foraminal stenoses. No additional spondylolisthesis. No suspicious epidural or intrathecal enhancement appreciated. 3. Incidental note is made of markedly distended urinary bladder.
--- NOTE | 2018-10-13 20:21 | CARD ---
APPROVED REPORT Date of service: 10/12/2018 EKG Measurement Heart [id number] <Conclusion> Normal sinus rhythm Normal ECG
[2018-10-13] MEDS: (Lantus) Insulin Glargine, Recombinant SC SCH (22:08)
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
[2018-10-14] MEDS: (Novolin R) Insulin Human Regular 100 units/ml vial SC SCH ×4 (07:30→21:32)
[2018-10-14 08:00] LABS: ALB/GLOB RATIO 1.6 (1.0-2.1); ALBUMIN 4.7 g/dL (3.5-5.0); ALT/SGPT 22 U/L (21-72); AST/SGOT 31 U/L (17-59); BLOOD UREA NITROGEN 22 mg/dL (9-20); CALCIUM 10.3 mg/dl (8.6-10.4); GFR NON-AFRICAN AMERICAN > 60
[2018-10-14 08:02] LABS: BASO % 0.5 % (0.0-2.0); EOS # 0.1 K/uL (0.0-0.7); EOS % 1.3 % (0.0-4.0); HEMOGLOBIN 15.2 g/dL (12.0-18.0); LYMPH # 1.6 K/uL (1.0-4.3); LYMPH % 18.7 % (20.0-40.0); MEAN CELL VOLUME 91.8 fL (80.0-94.0); MEAN CORPUSCULAR HEMOGLOBIN 30.7 pg (27.0-31.0); MEAN CORPUSCULAR HGB CONC 33.4 g/dL (33.0-37.0); MEAN PLATELET VOLUME 9.4 fL (7.2-11.7); MONO # 0.4 K/uL (0.0-0.8); MONO % 4.6 % (0.0-10.0); NEUT # 6.4 K/uL (1.8-7.0); NEUT % 74.9 % (50.0-75.0); RBC 4.95 Mil/uL (4.40-5.90); RED CELL DISTRIBUTION WIDTH 13.9 % (11.5-14.5); WHITE BLOOD COUNT 8.5 K/uL (4.8-10.8)
[2018-10-14] MEDS ORDERED: Pneumococcal 23-Valent Vaccine IM ONE (10:00)
[2018-10-14] MEDS ORDERED: Influenza Vaccine 60 mcg/0.5 mL SYR (4YR UP) IM ONE (12:00)
--- NOTE | 2018-10-14 13:29 | CP.PCM.PN ---
Subjective - Date & Time of Evaluation Date of Evaluation: 10/14/18 Time of Evaluation: 13:25 - Subjective Subjective: Augustine Pringle PGY1 Progress Note for Dr. Duque Patient was examined at bedside this morning. He reports improvement in his body pain and back pain. He feels less tingling sensation in the hands and feet since yesterday. Patient denies fever, chills, shortness of breath, chest pain, nausea, vomiting, dysuria. Objective - Vital Signs/Intake and Output Vital Signs (last 24 hours): Temp Pulse Resp BP Pulse Ox 98.9 F 68 20 149/68 98 10/14/18 07:25 10/14/18 07:25 10/14/18 07:25 10/14/18 10:13 10/14/18 07:25 Intake and Output: 10/14/18 10/14/18 06:59 18:59 Intake Total 300 Output Total 250 Balance 50 - Medications Medications: Current Medications Acetaminophen (Tylenol 325mg Tab) 650 mg PO Q6 PRN PRN Reason: Pain, moderate (4-7) Last Admin: 10/14/18 10:29 Dose: 650 mg Aspirin (Ecotrin) 81 mg PO DAILY [facility] Last Admin: 10/14/18 10:13 Dose: 81 mg Dextrose (Dextrose 50% Inj) 0 ml IV STAT PRN; Protocol PRN Reason: Hypoglycemia Protocol Dextrose (Glutose 15) 0 gm PO ONCE PRN; Protocol PRN Reason: Hypoglycemia Protocol Enalapril Maleate (Vasotec) 20 mg PO DAILY [facility] Last Admin: 10/14/18 10:13 Dose: 20 mg Glucagon (Glucagen Diagnostic Kit) 0 mg IM STAT PRN; Protocol PRN Reason: Hypoglycemia Protocol Heparin Sodium (Porcine) (Heparin) 5,000 units SC Q8 [facility] Last Admin: 10/14/18 05:55 Dose: 5,000 units Dextrose (Dextrose 5% In Water 1000 Ml) 1,000 mls @ 0 mls/hr IV .Q0M PRN; Protocol PRN Reason: Hypoglycemia Protocol Insulin Glargine (Lantus) 10 unit SC HS [facility] Last Admin: 10/13/18 22:08 Dose: 10 unit Insulin Human Regular (Novolin R) 0 unit SC ACHS [facility]; Protocol Last Admin: 10/14/18 13:16 Dose: 4 unit Rosuvastatin Calcium (Crestor) 10 mg PO HS [facility] Last Admin: 10/13/18 22:06 Dose: 10 mg - Labs Labs: 10/14/18 07:42 10/14/18 07:42 PT 11.9 SECONDS (9.7-12.2) 10/12/18 16:05 INR 1.1 10/12/18 16:05 APTT 32 SECONDS (21-34) 10/12/18 16:05 - Additional Findings Additional findings: - Constitutional Appears: Well, No Acute Distress - Head Exam Head Exam: ATRAUMATIC, NORMOCEPHALIC - Eye Exam Eye Exam: EOMI, Normal appearance, PERRL - ENT Exam ENT Exam: Mucous Membranes Moist - Respiratory Exam Respiratory Exam: Clear to Ausculation Bilateral, NORMAL BREATHING PATTERN. absent: Rales, Rhonchi, Wheezes - Cardiovascular Exam Cardiovascular Exam: REGULAR RHYTHM, +S1, +S2. absent: Gallop, Rubs, Murmur - GI/Abdominal Exam GI & Abdominal Exam: Soft, Normal Bowel Sounds. absent: Distended, Tenderness - Extremities Exam Extremities Exam: Normal Inspection - Back Exam Back Exam: paraspinal tenderness - Neurological Exam Neurological Exam: Alert, Awake, Oriented x3 Neuro motor strength exam: Left Upper Extremity: 4, Right Upper Extremity: 4, Left Lower Extremity: 3, Right Lower Extremity: 3 - Psychiatric Exam Psychiatric exam: Normal Affect, Normal Mood - Skin Skin Exam: Normal Color Assessment and Plan - Assessment and Plan (Free Text) Assessment: 68yo M with PMH of DM2, CVA, HTN, HLD, glaucoma, neuropathy presenting with lower extremity weakness, admitted for CVA r/o. CT showing chronic changes. Plan for [facility]. Plan: Spinal Stenosis - Neuro Consult: Dr. Jackson --> help appreciated - MRI L-Spine: grade 1 spondylolisthesis causing high grade stenosis in L4-5. gross facet joint degenrative arthropathy - Head CT: No intracranial hemorrhage. Generalized atrophy. Scattered nonspecific white matter changes. 3 mm right basal ganglia lacunar type infarct appears chronic. - Venous doppler LE: no evidence of DVT or superficial vein thrombosis b/l - Neuro Checks q4h - B12 wnl - RPR negative - PT/OT Eval/Treat - Tylenol PRN pain Diabetes mellitus with neuropathy - HbA1c 11.5 - insulin sliding scale coverage - Lantus 10units HS - Aspirin 81mg daily - Accuchecks - Hypoglycemia Protocol HLD - high TG - Crestor 10mg HS Hypertension - Enalapril 20mg daily Prophylaxis - GI prophylaxis: not indicated - Heparin SC q8h [facility] Dispo: Patient hemodynamically stable for d/c to [facility]. Currently pending ins urance authorization. Patient seen and case discussed with Dr. Duque
[2018-10-14] MEDS: (Lantus) Insulin Glargine, Recombinant SC SCH (21:57)
--- NOTE | 2018-10-14 22:51 | CP.PCM.PN ---
Subjective - Date & Time of Evaluation Date of Evaluation: 10/14/18 Time of Evaluation: 10:00 - Subjective Subjective: Patient is still experiencing weakness in his legs bilaterally, but can pull his legs to the side of the bed, and is able to lift up his legs briefly. Reflexes are present, and he has otherwise normal neurological exam. MRI L/S spine shows severe stenosis of L4/L3 region, and no myelomalacia. ROS; fatigue, weakness, malaise. On exam: AAox3. PERRL. Cn 2-12 normal. Speech fluent Motor: bilateral hams are 4/5, quads are 5-/5 gastrocnemius 3/5 bilaterally. Appears to have an L3/L4 dermatomal loss of sensation. Brisk reflexes bl, no clonus. Can pull to stand. Objective - Vital Signs/Intake and Output Vital Signs (last 24 hours): Temp Pulse Resp BP Pulse Ox 98 F 71 20 156/78 H 97 10/14/18 16:30 10/14/18 16:30 10/14/18 16:30 10/14/18 16:30 10/14/18 16:30 Intake and Output: 10/14/18 10/15/18 18:59 06:59 Intake Total 350 Balance 350 - Medications Medications: Current Medications Acetaminophen (Tylenol 325mg Tab) 650 mg PO Q6 PRN PRN Reason: Pain, moderate (4-7) Last Admin: 10/14/18 22:02 Dose: 650 mg Aspirin (Ecotrin) 81 mg PO DAILY [facility] Last Admin: 10/14/18 10:13 Dose: 81 mg Dextrose (Dextrose 50% Inj) 0 ml IV STAT PRN; Protocol PRN Reason: Hypoglycemia Protocol Dextrose (Glutose 15) 0 gm PO ONCE PRN; Protocol PRN Reason: Hypoglycemia Protocol Enalapril Maleate (Vasotec) 20 mg PO DAILY [facility] Last Admin: 10/14/18 10:13 Dose: 20 mg Glucagon (Glucagen Diagnostic Kit) 0 mg IM STAT PRN; Protocol PRN Reason: Hypoglycemia Protocol Heparin Sodium (Porcine) (Heparin) 5,000 units SC Q8 [facility] Last Admin: 10/14/18 21:58 Dose: 5,000 units Dextrose (Dextrose 5% In Water 1000 Ml) 1,000 mls @ 0 mls/hr IV .Q0M PRN; Protocol PRN Reason: Hypoglycemia Protocol Insulin Glargine (Lantus) 10 unit SC HS [facility] Last Admin: 10/14/18 21:57 Dose: 10 unit Insulin Human Regular (Novolin R) 0 unit SC ACHS [facility]; Protocol Last Admin: 10/14/18 21:32 Dose: Not Given Rosuvastatin Calcium (Crestor) 10 mg PO HS [facility] Last Admin: 10/14/18 21:58 Dose: 10 mg - Labs Labs: 10/14/18 07:42 10/14/18 07:42 PT 11.9 SECONDS (9.7-12.2) 10/12/18 16:05 INR 1.1 10/12/18 16:05 APTT 32 SECONDS (21-34) 10/12/18 16:05 Assessment and Plan - Assessment and Plan (Free Text) Assessment: 68 yr old male who appears to have severe l umbar radiculopathy, not likely to be guillain barre. Plan; 1. Follow up MRi L /S spine without tamara 2. Decadron Thank you Dr. skinner
[2018-10-15 07:03] LABS: BASO % 0.5 % (0.0-2.0); EOS % 0.4 % (0.0-4.0); HEMOGLOBIN 13.8 g/dL (12.0-18.0); LYMPH % 10.3 % (20.0-40.0); MEAN CORPUSCULAR HGB CONC 33.3 g/dL (33.0-37.0); MEAN PLATELET VOLUME 9.1 fL (7.2-11.7); MONO # 0.4 K/uL (0.0-0.8); NEUT # 7.9 K/uL (1.8-7.0); NEUT % 84.8 % (50.0-75.0); RBC 4.6 Mil/uL (4.40-5.90); RED CELL DISTRIBUTION WIDTH 13.3 % (11.5-14.5); WHITE BLOOD COUNT 9.3 K/uL (4.8-10.8)
[2018-10-15 07:40] LABS: ALB/GLOB RATIO 1.5 (1.0-2.1); ALBUMIN 4.3 g/dL (3.5-5.0); ALT/SGPT 27 U/L (21-72); AST/SGOT 22 U/L (17-59); BLOOD UREA NITROGEN 22 mg/dL (9-20); CALCIUM 9.6 mg/dl (8.6-10.4); GFR NON-AFRICAN AMERICAN > 60
[2018-10-15] MEDS: (Novolin R) Insulin Human Regular 100 units/ml vial SC SCH ×4 (08:03→21:46)
--- NOTE | 2018-10-15 11:08 | CP.PCM.PN ---
Subjective - Date & Time of Evaluation Date of Evaluation: 10/15/18 Time of Evaluation: 11:07 - Subjective Subjective: Augustine Pringle PGY1 Progress Note for Dr. Duque Pt was examined at bedside this morning. He reports continuation of his body pain, but improvement in the tingling sensation in his hands b/l. Objective - Vital Signs/Intake and Output Vital Signs (last 24 hours): Temp Pulse Resp BP Pulse Ox 97.8 F 88 20 163/86 H 97 10/15/18 07:25 10/15/18 07:25 10/15/18 07:25 10/15/18 09:59 10/15/18 07:25 Intake and Output: 10/15/18 10/15/18 06:59 18:59 Intake Total 350 Balance 350 - Medications Medications: Current Medications Acetaminophen (Tylenol 325mg Tab) 650 mg PO Q6 PRN PRN Reason: Pain, moderate (4-7) Last Admin: 10/15/18 10:00 Dose: 650 mg Aspirin (Ecotrin) 81 mg PO DAILY [facility] Last Admin: 10/15/18 09:59 Dose: 81 mg Dextrose (Dextrose 50% Inj) 0 ml IV STAT PRN; Protocol PRN Reason: Hypoglycemia Protocol Dextrose (Glutose 15) 0 gm PO ONCE PRN; Protocol PRN Reason: Hypoglycemia Protocol Enalapril Maleate (Vasotec) 20 mg PO DAILY [facility] Last Admin: 10/15/18 09:59 Dose: 20 mg Glucagon (Glucagen Diagnostic Kit) 0 mg IM STAT PRN; Protocol PRN Reason: Hypoglycemia Protocol Heparin Sodium (Porcine) (Heparin) 5,000 units SC Q8 [facility] Last Admin: 10/15/18 05:47 Dose: 5,000 units Dextrose (Dextrose 5% In Water 1000 Ml) 1,000 mls @ 0 mls/hr IV .Q0M PRN; Protocol PRN Reason: Hypoglycemia Protocol Insulin Glargine (Lantus) 10 unit SC HS [facility] Last Admin: 10/14/18 21:57 Dose: 10 unit Insulin Human Regular (Novolin R) 0 unit SC ACHS [facility]; Protocol Last Admin: 10/15/18 08:03 Dose: 3 unit Rosuvastatin Calcium (Crestor) 10 mg PO HS [facility] Last Admin: 10/14/18 21:58 Dose: 10 mg - Labs Labs: 10/15/18 06:56 02/21/19 06:56 PT 11.9 SECONDS (9.7-12.2) 10/12/18 16:05 INR 1.1 10/12/18 16:05 APTT 32 SECONDS (21-34) 10/12/18 16:05 - Additional Findings Additional findings: - Constitutional Appears: Well, No Acute Distress - Head Exam Head Exam: ATRAUMATIC, NORMOCEPHALIC - Eye Exam Eye Exam: EOMI, Normal appearance, PERRL - ENT Exam ENT Exam: Mucous Membranes Moist - Respiratory Exam Respiratory Exam: Clear to Ausculation Bilateral, NORMAL BREATHING PATTERN. ab sent: Rales, Rhonchi, Wheezes - Cardiovascular Exam Cardiovascular Exam: REGULAR RHYTHM, +S1, +S2. absent: Gallop, Rubs, Murmur - GI/Abdominal Exam GI & Abdominal Exam: Soft, Normal Bowel Sounds. absent: Distended, Tenderness - Extremities Exam Extremities Exam: Normal Inspection - Back Exam Back Exam: paraspinal tenderness - Neurological Exam Neurological Exam: Alert, Awake, Oriented x3 Neuro motor strength exam: Left Upper Extremity: 4, Right Upper Extremity: 4, Left Lower Extremity: 3, Right Lower Extremity: 3 - Psychiatric Exam Psychiatric exam: Normal Affect, Normal Mood - Skin Skin Exam: Normal Color Assessment and Plan - Assessment and Plan (Free Text) Assessment: 68yo M with PMH of DM2, CVA, HTN, HLD, glaucoma, neuropathy presenting with lower extremity weakness, admitted for CVA r/o. CT showing chronic changes. Plan for [facility]. Plan: Spinal Stenosis - Neuro Consult: Dr. Jackson --> help appreciated - MRI L-Spine: grade 1 spondylolisthesis causing high grade stenosis in L4-5. gross facet joint degenrative arthropathy - Head CT: No intracranial hemorrhage. Generalized atrophy. Scattered nonspecific white matter changes. 3 mm right basal ganglia lacunar type infarct appears chronic. - Venous doppler LE: no evidence of DVT or superficial vein thrombosis b/l - Neuro Checks q4h - B12 wnl - RPR negative - PT/OT Eval/Treat - Tylenol PRN pain Diabetes mellitus with neuropathy - HbA1c 11.5 - insulin sliding scale coverage - Lantus 10units HS - Aspirin 81mg daily - Accuchecks - Hypoglycemia Protocol HLD - high TG - Crestor 10mg HS Hypertension - Enalapril 20mg daily Prophylaxis - GI prophylaxis: not indicated - Heparin SC q8h [facility] Dispo: Patient hemodynamically stable for d/c to [facility]. Currently pending insurance authorization. Patient seen and case discussed with Dr. Duque
[2018-10-15] MEDS: (Lantus) Insulin Glargine, Recombinant SC SCH (21:47)
[2018-10-16] MEDS: (Novolin R) Insulin Human Regular 100 units/ml vial SC SCH ×4 (07:47→21:30)
[2018-10-16 08:22] LABS: BASO % 0.3 % (0.0-2.0); EOS # 0.1 K/uL (0.0-0.7); EOS % 1.2 % (0.0-4.0); HEMOGLOBIN 13.4 g/dL (12.0-18.0); LYMPH # 1.1 K/uL (1.0-4.3); LYMPH % 17.5 % (20.0-40.0); MEAN CELL VOLUME 91.2 fL (80.0-94.0); MEAN CORPUSCULAR HEMOGLOBIN 31.4 pg (27.0-31.0); MEAN CORPUSCULAR HGB CONC 34.5 g/dL (33.0-37.0); MEAN PLATELET VOLUME 9.1 fL (7.2-11.7); MONO # 0.5 K/uL (0.0-0.8); MONO % 7.9 % (0.0-10.0); NEUT # 4.7 K/uL (1.8-7.0); NEUT % 73.1 % (50.0-75.0); RBC 4.28 Mil/uL (4.40-5.90); RED CELL DISTRIBUTION WIDTH 13.4 % (11.5-14.5); WHITE BLOOD COUNT 6.4 K/uL (4.8-10.8)
[2018-10-16 08:25] LABS: ALB/GLOB RATIO 1.5 (1.0-2.1); ALBUMIN 4.3 g/dL (3.5-5.0); ALT/SGPT 21 U/L (21-72); AST/SGOT 19 U/L (17-59); BLOOD UREA NITROGEN 27 mg/dL (9-20); CALCIUM 9.3 mg/dl (8.6-10.4); GFR NON-AFRICAN AMERICAN > 60
[2018-10-16] MEDS ORDERED: (Novolin R) Insulin Human Regular 100 units/ml vial SC ONE (12:00)
[2018-10-16] MEDS: Dexamethasone 4 mg/1 ml IVP SCH ×2 (14:26→21:34)
--- NOTE | 2018-10-16 14:38 | CP.PCM.PN ---
Subjective - Date & Time of Evaluation Date of Evaluation: 10/16/18 Time of Evaluation: 14:35 - Subjective Subjective: Augustine Pringle PGY1 Progress Note for Dr. Duque Pt was examined at bedside this morning. He reports improvement in his pain but additional cramping in the hands and arms b/l. He reports continuation of his tingling sensation in the hands b/l. He denies headache, dizziness, shortness of breath, nausea, vomiting. Objective - Vital Signs/Intake and Output Vital Signs (last 24 hours): Temp Pulse Resp BP Pulse Ox 97.8 F 71 20 172/84 H 97 10/16/18 07:15 10/16/18 07:15 10/16/18 07:15 10/16/18 09:31 10/16/18 07:15 Intake and Output: 10/16/18 10/16/18 06:59 18:59 Intake Total 480 Balance 480 - Medications Medications: Current Medications Acetaminophen (Tylenol 325mg Tab) 650 mg PO Q6 PRN PRN Reason: Pain, moderate (4-7) Last Admin: 10/16/18 09:30 Dose: 650 mg Aspirin (Ecotrin) 81 mg PO DAILY [facility] Last Admin: 10/16/18 09:31 Dose: 81 mg Dexamethasone (Decadron Inj) 4 mg IVP Q12 [facility] Last Admin: 10/16/18 14:26 Dose: 4 mg Dextrose (Dextrose 50% Inj) 0 ml IV STAT PRN; Protocol PRN Reason: Hypoglycemia Protocol Dextrose (Glutose 15) 0 gm PO ONCE PRN; Protocol PRN Reason: Hypoglycemia Protocol Enalapril Maleate (Vasotec) 20 mg PO DAILY [facility] Last Admin: 10/16/18 09:31 Dose: 20 mg Glucagon (Glucagen Diagnostic Kit) 0 mg IM STAT PRN; Protocol PRN Reason: Hypoglycemia Protocol Heparin Sodium (Porcine) (Heparin) 5,000 units SC Q8 [facility] Last Admin: 10/16/18 14:26 Dose: 5,000 units Dextrose (Dextrose 5% In Water 1000 Ml) 1,000 mls @ 0 mls/hr IV .Q0M PRN; Protocol PRN Reason: Hypoglycemia Protocol Insulin Glargine (Lantus) 20 unit SC HS [facility] Insulin Human Regular (Novolin R) 0 unit SC ACHS [facility]; Protocol Rosuvastatin Calcium (Crestor) 10 mg PO HS [facility] Last Admin: 10/15/18 21:49 Dose: 10 mg - Labs Labs: 10/16/18 07:56 10/16/18 07:56 PT 11.9 SECONDS (9.7-12.2) 10/12/18 16:05 INR 1.1 10/12/18 16:05 APTT 32 SECONDS (21-34) 10/12/18 16:05 - Additional Findings Additional findings: - Constitutional Appears: Well, No Acute Distress - Head Exam Head Exam: ATRAUMATIC, NORMOCEPHALIC - Eye Exam Eye Exam: EOMI, Normal appearance, PERRL - ENT Exam ENT Exam: Mucous Membranes Moist - Respiratory Exam Respiratory Exam: Clear to Ausculation Bilateral, NORMAL BREATHING PATTERN. absent: Rales, Rhonchi, Wheezes - Cardiovascular Exam Cardiovascular Exam: REGULAR RHYTHM, +S1, +S2. absent: Gallop, Rubs, Murmur - GI/Abdominal Exam GI & Abdominal Exam: Soft, Normal Bowel Sounds. absent: Distended, Tenderness - Extremities Exam Extremities Exam: Normal Inspection - Back Exam Back Exam: paraspinal tenderness - Neurological Exam Neurological Exam: Alert, Awake, Oriented x3 Neuro motor strength exam: Left Upper Extremity: 4, Right Upper Extremity: 4, Left Lower Extremity: 3, Right Lower Extremity: 3 - Psychiatric Exam Psychiatric exam: Normal Affect, Normal Mood - Skin Skin Exam: Normal Color Assessment and Plan - Assessment and Plan (Free Text) Assessment: 68yo M with PMH of DM2, CVA, HTN, HLD, glaucoma, neuropathy presenting with lower extremity weakness, admitted for CVA r/o. CT showing chronic changes. Plan for [facility]. Plan: Spinal Stenosis - MRI L-Spine: grade 1 spondylolisthesis causing high grade stenosis in L4-5. gross facet joint degenrative arthropathy - Head CT: No intracranial hemorrhage. Generalized atrophy. Scattered nonspecific white matter changes. 3 mm right basal ganglia lacunar type infarct appears chronic. - Venous doppler LE: no evidence of DVT or superficial vein thrombosis b/l - Neuro Checks q4h - B12 wnl - RPR negative - PT/OT Eval/Treat - Tylenol PRN pain - f/u CT L-spine as per Neurosurgery - Start Decadron 4mg IV q12h - Neuro consulted, Dr. Manuel hung appreciated - Neurosurgery consulted, Dr. Vazquez - f/u recs Diabetes mellitus with neuropathy - HbA1c 11.5 - insulin sliding scale coverage - Lantus 20units HS - Aspirin 81mg daily - Accuchecks - Hypoglycemia Protocol HLD - high TG - Crestor 10mg HS Hypertension - Enalapril 20mg daily Prophylaxis - GI prophylaxis: not indicated - Heparin SC q8h [facility] Dispo: Patient hemodynamically stable for d/c to [facility]. Currently pending insurance authorization. Patient seen and case discussed with Dr. Duque
--- NOTE | 2018-10-16 14:42 | CT ---
Date of service: 10/16/2018 PROCEDURE: CT scan lumbar spine 10/16/2018. HISTORY: Spondylolisthesis at L4-5 COMPARISON: Comparison made with lumbar spine MRI lumbar spine dated 10/13/2018. TECHNIQUE: Axial computed tomography images were obtained of the lumbar spine without the use of intravenous contrast. Coronal and sagittal reformatted images were created and reviewed. Radiation dose: Total exam DLP = 685.33 mGy-cm. This CT exam was performed using one or more of the following dose reduction techniques: Automated exposure control, adjustment of the mA and/or kV according to patient size, and/or use of iterative reconstruction technique. FINDINGS: VERTEBRAE: Acute compression fractures no retropulsed fragments. Vertebral bodies exhibit normal stature. Again noted is an approximately less than grade 1-grade 1 anterior listhesis at the L4-L5 level felt to be secondary to hypertrophic facets as no definitive pars interarticularis defects are identified. Vertebral bodies otherwise exhibit normal alignment. Facets normally aligned. DISCS/SPINAL CANAL/NEURAL FORAMINA: At the L4-L5 level, the pedicles are congenitally short. In addition, there is moderate disc space narrowing and vacuum disc phenomena.. Previously noted uncovering of the posterior superior margin of the disc due to the anterior listhesis and superior subligamentous disc herniation less well seen on this exam as compared to high-resolution MRI.. Significant bilateral lateral recess and central canal stenosis with the severe compression of the intrathecal and extra thecal nerve roots of the cauda equina at this level. The disc extends into the inferior margins of both exit foramina with significant bilateral foraminal stenosis and compression of the foraminal L4 nerve roots.. Note that all these changes are seen to better advantage on prior MRI. At the L5-S1 level, there is disc desiccation however disc space height is maintained. Small central and bilateral broad-based disc bulge ridge complex also extends into the proximal inferior margins of both exit foramina of more so on the left than the right. The facet joints at this level also hypertrophic. The central canal is narrowed.. Minimally flattens the ventral surface of the thecal sac and posteriorly displaces the S1 nerve roots more so on the left than the right. Left exit foramen is stenotic with compression of the left-sided L5 foraminal nerve root. Right exit foramen is slightly narrowed. At the L3-L4 level, there is disc desiccation however disc space height is relatively maintained.. Small broad-based bulge of the posterior annulus also extends slightly into the proximal inferior margins of both exit foramina more so on the left side. Facets also hypertrophic. Changes result in mild bilateral lateral recess stenosis. The central canal is marginal to slightly narrowed. Exit foramina are also slightly narrowed. At the L2-L3 level, there is disc desiccation and posterior disc space narrowing. No disc herniation nor significant disc bulge. Facets are mildly hypertrophic. PARASPINAL SOFT TISSUES: Unremarkable. OTHER FINDINGS: Incidental note is made of what appears to represent wall thickening of the posterior inferior margin of the urinary bladder of or possibly some encroachment of the the enlarged prostate gland. The possibility of a intrinsic/invasive wall lesion of the urinary bladder cannot be excluded. Correlation with urinalysis and urologic consultation may be prudent.. IMPRESSION: There is an approximately a less than grade 1-grade 1 anterior listhesis at the L4-L5 level. Uncovering of the posterior superior surface of the disc with superior subligamentous extension of disc material over short distance dorsal to the posterior aspect of the L4 segment and severe central canal stenosis at this level are less well seen on this exam as compared to high-resolution MRI. Degenerative spondylosis also noted at the L5-S1 and L3-L4 levels and to a lesser degree the remaining levels also seen to better advantage on prior MRI. Please refer to that study and corresponding report for additional details. Questionable wall thickening of the posterior inferior margin of the urinary bladder possibly to some encroachment of the prostate gland. Possibility of intrinsic/invasive bladder bladder wall lesion not excluded. Consider follow-up urologic consultation and urinalysis..
--- NOTE | 2018-10-16 15:19 | CP.PCM.PN ---
Subjective - Date & Time of Evaluation Date of Evaluation: 10/16/18 Time of Evaluation: 15:06 - Subjective Subjective: Neuro Follow-Up Note: Mr. Pelaez was evaluated this afternoon at bedside. He is still complaining of weakness and numbness/tingling to his legs. Occasionally he has pain to his thighs but none now. Denies h/a, dizziness, visual changes, chest pain, palpitations, sob, cough abd pain, n/v/d, chills, bowel/bladder incontinence. Objective - Vital Signs/Intake and Output Vital Signs (last 24 hours): Temp Pulse Resp BP Pulse Ox 97.8 F 71 20 172/84 H 97 10/16/18 07:15 10/16/18 07:15 10/16/18 07:15 10/16/18 09:31 10/16/18 07:15 Intake and Output: 10/16/18 10/16/18 06:59 18:59 Intake Total 480 Balance 480 - Medications Medications: Current Medications Acetaminophen (Tylenol 325mg Tab) 650 mg PO Q6 PRN PRN Reason: Pain, moderate (4-7) Last Admin: 10/16/18 09:30 Dose: 650 mg Aspirin (Ecotrin) 81 mg PO DAILY [facility] Last Admin: 10/16/18 09:31 Dose: 81 mg Dexamethasone (Decadron Inj) 4 mg IVP Q12 [facility] Last Admin: 10/16/18 14:26 Dose: 4 mg Dextrose (Dextrose 50% Inj) 0 ml IV STAT PRN; Protocol PRN Reason: Hypoglycemia Protocol Dextrose (Glutose 15) 0 gm PO ONCE PRN; Protocol PRN Reason: Hypoglycemia Protocol Enalapril Maleate (Vasotec) 20 mg PO DAILY [facility] Last Admin: 10/16/18 09:31 Dose: 20 mg Glucagon (Glucagen Diagnostic Kit) 0 mg IM STAT PRN; Protocol PRN Reason: Hypoglycemia Protocol Heparin Sodium (Porcine) (Heparin) 5,000 units SC Q8 [facility] Last Admin: 10/16/18 14:26 Dose: 5,000 units Dextrose (Dextrose 5% In Water 1000 Ml) 1,000 mls @ 0 mls/hr IV .Q0M PRN; Protocol PRN Reason: Hypoglycemia Protocol Insulin Glargine (Lantus) 20 unit SC HS [facility] Insulin Human Regular (Novolin R) 0 unit SC ACHS [facility]; Protocol Rosuvastatin Calcium (Crestor) 10 mg PO HS [facility] Last Admin: 10/15/18 21:49 Dose: 10 mg - Labs Labs: 10/16/18 07:56 10/16/18 07:56 PT 11.9 SECONDS (9.7-12.2) 10/12/18 16:05 INR 1.1 10/12/18 16:05 APTT 32 SECONDS (21-34) 10/12/18 16:05 - Constitutional Appears: Well, Non-toxic, No Acute Distress - Head Exam Head Exam: ATRAUMATIC, NORMAL INSPECTION, NORMOCEPHALIC - Eye Exam Eye Exam: EOMI, Normal appearance, PERRL Pupil Exam: NORMAL ACCOMODATION, PERRL - ENT Exam ENT Exam: Mucous Membranes Moist - Neck Exam Neck Exam: Full ROM, Normal Inspection - Respiratory Exam Respiratory Exam: NORMAL BREATHING PATTERN - Extremities Exam Extremities Exam: absent: Calf Tenderness, Full ROM, Pedal Edema Additional comments: Can move all extremities. Some weakness noted to BLE. - Neurological Exam Neurological Exam: Alert, Awake, CN II-XII Intact, Oriented x3, Reflexes Normal Neuro motor strength exam: Left Upper Extremity: 5, Right Upper Extremity: 5, Left Lower Extremity: 3 (plantar flexion 5/5), Right Lower Extremity: 3 (plantar flexion 5/5) Additional comments: Speech clear, fluid Follows all commands Some weakness noted to BLE but normal plantar flexion. Sensation intact b/l throughout. No tremors. Toes down going b/l Gait not assessed; PT notes reviewed, - Psychiatric Exam Psychiatric exam: Normal Affect, Normal Mood - Skin Skin Exam: Normal Color Assessment and Plan (1) Spinal stenosis Assessment & Plan: Imaging reviewed: -L-Spine CT (10/15/18): There is an approximately a less than grade 1-grade 1 anterior listhesis at the L4-L5 level. Uncovering of the posterior superior surface of the disc with superior subligamentous extension of disc material over short distance dorsal to the posterior aspect of the L4 segment and severe central canal stenosis at this level are less well seen on this exam as compared to high-resolution MRI. Degenerative spondylosis also noted at the L5-S1 and L3- L4 levels and to a lesser degree the remaining levels also seen to better advantage on prior MRI. Please refer to that study and corresponding report for additional details. Questionable wall thickening of the posterior inferior margin of the urinary bladder possibly to some encroachment of the prostate gland. Possibility of intrinsic/invasive bladder bladder wall lesion not excluded. Consider follow-up urologic consultation and urinalysis. -L-Spine MRI (10/13/18): 1. High-grade central canal stenosis L4-5 due to grade 1 spondylolisthesis, generalized disc bulging and gross facet joint degenerative arthropathy. No disc herniation. Multilevel degenerative neural foraminal stenoses. No additional spondylolisthesis. No suspicious epidural or intrathecal enhancement appreciated. 3. Incidental note is made of markedly distended urinary bladder. -Neurosurgery consulted. Per the pt he was seen by Dr. Mayo this morning, who advised surgery, possibly next week. Dr. Mayo's consultation note pe nding with his recommendations. -Continue Decadron as ordered. -Continue PT; recommend [facility] upon d/c. -Notify neuro team of any acute changes in pt's condition. We will continue to follow the pt. Carla Carlisle DNP, [facility] Case discussed with Dr. Jackson Status: Acute
[2018-10-16] MEDS: (Lantus) Insulin Glargine, Recombinant SC SCH (21:42)
[2018-10-17 08:06] LABS: BASO % 0.1 % (0.0-2.0); HEMOGLOBIN 14.1 g/dL (12.0-18.0); LYMPH # 0.9 K/uL (1.0-4.3); LYMPH % 8.8 % (20.0-40.0); MEAN CELL VOLUME 90.6 fL (80.0-94.0); MEAN CORPUSCULAR HEMOGLOBIN 30.5 pg (27.0-31.0); MEAN CORPUSCULAR HGB CONC 33.7 g/dL (33.0-37.0); MONO # 0.4 K/uL (0.0-0.8); MONO % 3.8 % (0.0-10.0); NEUT # 9.2 K/uL (1.8-7.0); NEUT % 87.3 % (50.0-75.0); NRBC % 0.1 % (0.0-2.0); PLATELET COUNT 257 K/uL (130-400); RBC 4.63 Mil/uL (4.40-5.90); RED CELL DISTRIBUTION WIDTH 13.3 % (11.5-14.5)
[2018-10-17 08:10] LABS: ALB/GLOB RATIO 1.5 (1.0-2.1); ALBUMIN 4.6 g/dL (3.5-5.0); ALT/SGPT 17 U/L (21-72); AST/SGOT 18 U/L (17-59); BLOOD UREA NITROGEN 33 mg/dL (9-20); GFR NON-AFRICAN AMERICAN > 60
[2018-10-17 08:12] LABS: WHITE BLOOD COUNT 10.6 K/uL (4.8-10.8)
[2018-10-17] MEDS: (Novolin R) Insulin Human Regular 100 units/ml vial SC SCH ×4 (08:36→21:58)
[2018-10-17 09:20] LABS: BANDS 1 % (0-2); LYMPHOCYTE 7 % (20-40); MONOCYTE 5 % (0-10); NEUTROPHIL 87 % (50-75); TOTAL CELLS COUNTED 100
[2018-10-17 09:21] LABS: ANISOCYTOSIS SLIGHT; PLATELET ESTIMATE NORMAL (NORMAL)
[2018-10-17 09:22] LABS: HYPOCHROMIC SLIGHT; LARGE PLATELETS PRESENT; POLYCHROMIC SLIGHT; TOXIC GRANULATION PRESENT
--- NOTE | 2018-10-17 09:28 | CP.PCM.PN ---
Subjective - Date & Time of Evaluation Date of Evaluation: 10/17/18 Time of Evaluation: 09:28 - Subjective Subjective: PGY-2 Progress Note: Dr. Duque Service Patient seen and examined at bedside. Per nursing no acute events occurred overnight. Patient reports feeling better during today's examination. He denies any dizziness, changes in vision, headaches, nausea, vomiting, chest pain, shortness of breath, syncopal episodes, or any other complaints. Objective - Vital Signs/Intake and Output Vital Signs (last 24 hours): Temp Pulse Resp BP Pulse Ox 97.5 F L 65 20 136/65 97 10/17/18 07:00 10/17/18 07:00 10/17/18 07:00 10/17/18 07:00 10/17/18 07:00 - Medications Medications: Current Medications Acetaminophen (Tylenol 325mg Tab) 650 mg PO Q6 PRN PRN Reason: Pain, moderate (4-7) Last Admin: 10/16/18 21:33 Dose: 650 mg Aspirin (Ecotrin) 81 mg PO DAILY [facility] Last Admin: 10/16/18 09:31 Dose: 81 mg Dexamethasone (Decadron Inj) 4 mg IVP Q12 [facility] Last Admin: 10/16/18 21:34 Dose: 4 mg Dextrose (Dextrose 50% Inj) 0 ml IV STAT PRN; Protocol PRN Reason: Hypoglycemia Protocol Dextrose (Glutose 15) 0 gm PO ONCE PRN; Protocol PRN Reason: Hypoglycemia Protocol Enalapril Maleate (Vasotec) 20 mg PO DAILY [facility] Last Admin: 10/16/18 09:31 Dose: 20 mg Glucagon (Glucagen Diagnostic Kit) 0 mg IM STAT PRN; Protocol PRN Reason: Hypoglycemia Protocol Heparin Sodium (Porcine) (Heparin) 5,000 units SC Q8 [facility] Last Admin: 10/17/18 05:29 Dose: 5,000 units Dextrose (Dextrose 5% In Water 1000 Ml) 1,000 mls @ 0 mls/hr IV .Q0M PRN; Protocol PRN Reason: Hypoglycemia Protocol Insulin Glargine (Lantus) 20 unit SC HS [facility] Last Admin: 10/16/18 21:42 Dose: 20 unit Insulin Human Regular (Novolin R) 0 unit SC ACHS [facility]; Protocol Last Admin: 10/17/18 08:36 Dose: 8 unit Rosuvastatin Calcium (Crestor) 10 mg PO HS [facility] Last Admin: 10/16/18 21:30 Dose: 10 mg - Labs Labs: 10/17/18 07:43 10/17/18 07:43 PT 11.9 SECONDS (9.7-12.2) 10/12/18 16:05 INR 1.1 10/12/18 16:05 APTT 32 SECONDS (21-34) 10/12/18 16:05 - Head Exam Head Exam: ATRAUMATIC, NORMAL INSPECTION - Eye Exam Eye Exam: EOMI, Normal appearance, PERRL Pupil Exam: NORMAL ACCOMODATION - ENT Exam ENT Exam: Mucous Membranes Moist, Normal Oropharynx - Respiratory Exam Respiratory Exam: Clear to Ausculation Bilateral, NORMAL BREATHING PATTERN. absent: Prolonged Expiratory Phase, Respiratory Distress - Cardiovascular Exam Cardiovascular Exam: REGULAR RHYTHM, +S1 - GI/Abdominal Exam GI & Abdominal Exam: Soft, Normal Bowel Sounds. absent: Hyperactive Bowel Sounds - Neurological Exam Neurological Exam: Alert, Awake, Oriented x3 - Psychiatric Exam Psychiatric exam: Normal Affect, Normal Mood. absent: Depressed - Skin Skin Exam: Dry, Intact. absent: Erythema, Rash Assessment and Plan - Assessment and Plan (Free Text) Assessment: 68yo M with PMH of DM2, CVA, HTN, HLD, glaucoma, neuropathy presenting with lower extremity weakness, admitted for CVA r/o. CT showing chronic changes. Plan for [facility]. Plan: Spinal Stenosis - MRI L-Spine: grade 1 spondylolisthesis causing high grade stenosis in L4-5. gross facet joint degenrative arthropathy - Head CT: No intracranial hemorrhage. Generalized atrophy. Scattered no nspecific white matter changes. 3 mm right basal ganglia lacunar type infarct appears chronic. - Venous doppler LE: no evidence of DVT or superficial vein thrombosis b/l -CT L-spine as per Neurosurgery:There is an approximately a less than grade 1- grade 1 anterior listhesis at the L4-L5 level. Uncovering of the posterior superior surface of the disc with superior subligamentous extension of disc m aterial over short distance dorsal to the posterior aspect of the L4 segment and severe central canal stenosis at this level are less well seen on this exam as compared to high-resolution MRI. Degenerative spondylosis also noted at the L5- S1 and L3-L4 levels and to a lesser degree the remaining levels also seen to better advantage on prior MRI. Please refer to that study and corresponding report for additional details. Questionable wall thickening of the posterior inferior margin of the urinary bladder possibly to some encroachment of the prostate gland. Possibility of intrinsic/invasive bladder bladder wall lesion not excluded. Consider follow-up urologic consultation and urinalysis.. - Neuro Checks q4h - B12 wnl - RPR negative - PT/OT Eval/Treat - Tylenol PRN pain - Start Decadron 4mg IV q12h - Neuro consulted, Dr. Manuel hung appreciated - Neurosurgery consulted, Dr. Vazquez :O.R. Friday @11.am. -Cardiology consulted. Help appreciated. Diabetes mellitus with neuropathy - HbA1c 11.5 - insulin sliding scale coverage - Lantus 20units HS - Aspirin 81mg daily - Accuchecks - Hypoglycemia Protocol HLD - high TG - Crestor 10mg HS Hypertension - Enalapril 20mg daily Prophylaxis - GI prophylaxis: not indicated - Heparin SC q8h [facility] Dispo: Patient hemodynamically stable for d/c to [facility]. Currently pending insurance authorization. Patient expected to go to the [facility] Friday 11a.m. per Neurosurgery. Cardiology consulted for medical optimization/ clearance for surgery. Patient seen and case discussed with Dr. Dunia Gillespie, PGY-2
[2018-10-17] MEDS: Dexamethasone 4 mg/1 ml IVP SCH ×2 (10:16→21:58)
--- NOTE | 2018-10-17 12:16 | CP.PCM.PN ---
Subjective - Date & Time of Evaluation Date of Evaluation: 10/17/18 Time of Evaluation: 12:15 - Subjective Subjective: SPINE Pt agrees to surgery. Consent signed. Scheduled for 11am Friday morning Objective - Vital Signs/Intake and Output Vital Signs (last 24 hours): Temp Pulse Resp BP Pulse Ox 97.5 F L 65 20 157/59 H 97 10/17/18 07:00 10/17/18 07:00 10/17/18 07:00 10/17/18 10:14 10/17/18 07:00 - Medications Medications: Current Medications Acetaminophen (Tylenol 325mg Tab) 650 mg PO Q6 PRN PRN Reason: Pain, moderate (4-7) Last Admin: 10/16/18 21:33 Dose: 650 mg Aspirin (Ecotrin) 81 mg PO DAILY [facility] Last Admin: 10/17/18 10:16 Dose: 81 mg Dexamethasone (Decadron Inj) 4 mg IVP Q12 [facility] Last Admin: 10/17/18 10:16 Dose: 4 mg Dextrose (Dextrose 50% Inj) 0 ml IV STAT PRN; Protocol PRN Reason: Hypoglycemia Protocol Dextrose (Glutose 15) 0 gm PO ONCE PRN; Protocol PRN Reason: Hypoglycemia Protocol Enalapril Maleate (Vasotec) 20 mg PO DAILY [facility] Last Admin: 10/17/18 10:14 Dose: 20 mg Glucagon (Glucagen Diagnostic Kit) 0 mg IM STAT PRN; Protocol PRN Reason: Hypoglycemia Protocol Heparin Sodium (Porcine) (Heparin) 5,000 units SC Q8 [facility] Last Admin: 10/17/18 05:29 Dose: 5,000 units Dextrose (Dextrose 5% In Water 1000 Ml) 1,000 mls @ 0 mls/hr IV .Q0M PRN; Protocol PRN Reason: Hypoglycemia Protocol Insulin Glargine (Lantus) 20 unit SC HS [facility] Last Admin: 10/16/18 21:42 Dose: 20 unit Insulin Human Regular (Novolin R) 0 unit SC ACHS [facility]; Protocol Last Admin: 10/17/18 12:02 Dose: 12 units Rosuvastatin Calcium (Crestor) 10 mg PO HS [facility] Last Admin: 10/16/18 21:30 Dose: 10 mg - Labs Labs: 10/17/18 07:43 10/17/18 07:43 PT 11.9 SECONDS (9.7-12.2) 10/12/18 16:05 INR 1.1 10/12/18 16:05 APTT 32 SECONDS (21-34) 10/12/18 16:05
--- NOTE | 2018-10-17 15:31 | MRI ---
Date of service: 10/17/2018 PROCEDURE: MR CERVICAL SPINE WITHOUT CONTRAST HISTORY: Numbness in hands, pain in arms COMPARISON: None available. TECHNIQUE: Multiecho multiplanar sequences were performed through the cervical spine without the use of intravenous contrast. FINDINGS: There is degenerative 3 mm anterior listhesis of C4 on C5. There is normal cervical lordosis. There are multilevel degenerative endplate marrow changes at C4-5, C5-6 and C6-7. Otherwise, bone marrow signal is within normal limits. There is no acute fracture. The craniocervical junction is normal. There is moderate degenerative osteoarthrosis at the atlantoaxial joint. 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 The cervical cord is normal in contour, caliber and has normal intrinsic signal. There is multilevel dorsal and ventral indentation of the thecal sac. C2-C3: Broad-based disc osteophyte complex with superimposed left posterolateral disc protrusion without central spinal canal stenosis. No neural foraminal narrowing. C3-C4: Broad-based disc osteophyte complex in conjunction with mild ligamentum flavum infolding result in mild spinal canal stenosis. Moderate bilateral facet arthropathy contribute to mild neural foraminal narrowing. C4-C5: Broad-based disc osteophyte complex in conjunction with moderate ligamentum flavum infolding result in severe spinal canal stenosis. Severe bilateral facet arthropathy contribute to moderate to severe neural foraminal narrowing. C5-C6: Broad-based disc osteophyte complex in conjunction with mild ligamentum flavum infolding result in mild spinal canal stenosis. Mild bilateral facet arthropathy contribute to moderate right and severe left neural foraminal narrowing. C6-C7: Broad-based disc osteophyte complex and mild spinal canal stenosis. Mild bilateral facet arthropathy contribute to mild right neural foraminal narrowing. C7-T1: No disc herniation, spinal canal stenosis or neural foraminal narrowing. OTHER FINDINGS: The paraspinous soft tissues are normal. IMPRESSION: 1. Multilevel degenerative disc disease, worse at C4-5 with a broad-based disc osteophyte complex and moderate ligamentum flavum infolding with severe spinal canal stenosis. No intrinsic cord signal abnormality. 2. 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
[2018-10-17] MEDS: (Lantus) Insulin Glargine, Recombinant SC SCH (21:58)
[2018-10-18] MEDS ORDERED: (Novolin R) Insulin Human Regular 100 units/ml vial SC ONE (02:40)
--- NOTE | 2018-10-18 07:46 | CP.PCM.PN ---
Subjective - Date & Time of Evaluation Date of Evaluation: 10/18/18 Time of Evaluation: 07:46 - Subjective Subjective: PGY-2 Progress Note: Dr. Duque Service Patient seen and examined at bedside. Per nursing no acute events occurred overnight. Patient reports feeling better during today's examination. He denies any dizziness, changes in vision, headaches, nausea, vomiting, chest pain, shortness of breath, syncopal episodes, or any other complaints. Objective - Vital Signs/Intake and Output Vital Signs (last 24 hours): Temp Pulse Resp BP Pulse Ox 97.9 F 68 20 150/76 97 10/17/18 23:45 10/17/18 23:45 10/17/18 23:45 10/17/18 23:45 10/17/18 23:45 - Medications Medications: Current Medications Acetaminophen (Tylenol 325mg Tab) 650 mg PO Q6 PRN PRN Reason: Pain, moderate (4-7) Last Admin: 10/17/18 21:57 Dose: 650 mg Aspirin (Ecotrin) 81 mg PO DAILY [facility] Last Admin: 10/17/18 10:16 Dose: 81 mg Dexamethasone (Decadron Inj) 4 mg IVP Q12 [facility] Last Admin: 10/17/18 21:58 Dose: 4 mg Dextrose (Dextrose 50% Inj) 0 ml IV STAT PRN; Protocol PRN Reason: Hypoglycemia Protocol Dextrose (Glutose 15) 0 gm PO ONCE PRN; Protocol PRN Reason: Hypoglycemia Protocol Enalapril Maleate (Vasotec) 20 mg PO DAILY [facility] Last Admin: 10/17/18 10:14 Dose: 20 mg Glucagon (Glucagen Diagnostic Kit) 0 mg IM STAT PRN; Protocol PRN Reason: Hypoglycemia Protocol Heparin Sodium (Porcine) (Heparin) 5,000 units SC Q8 [facility] Last Admin: 10/18/18 05:49 Dose: 5,000 units Dextrose (Dextrose 5% In Water 1000 Ml) 1,000 mls @ 0 mls/hr IV .Q0M PRN; Protocol PRN Reason: Hypoglycemia Protocol Insulin Glargine (Lantus) 30 unit SC HS [facility] Insulin Human Regular (Novolin R) 0 unit SC ACHS [facility]; Protocol Last Admin: 10/17/18 21:58 Dose: 4 units Rosuvastatin Calcium (Crestor) 10 mg PO HS [facility] Last Admin: 10/17/18 21:57 Dose: 10 mg - Labs Labs: 10/17/18 07:43 10/17/18 07:43 PT 11.9 SECONDS (9.7-12.2) 10/12/18 16:05 INR 1.1 10/12/18 16:05 APTT 32 SECONDS (21-34) 10/12/18 16:05 - Head Exam Head Exam: ATRAUMATIC, NORMAL INSPECTION - Eye Exam Eye Exam: EOMI, Normal appearance, PERRL Pupil Exam: NORMAL ACCOMODATION - ENT Exam ENT Exam: Mucous Membranes Moist, Normal Oropharynx - Respiratory Exam Respiratory Exam: Clear to Ausculation Bilateral, NORMAL BREATHING PATTERN. absent: Prolonged Expiratory Phase, Respiratory Distress - Cardiovascular Exam Cardiovascular Exam: REGULAR RHYTHM, +S1, +S2 - GI/Abdominal Exam GI & Abdominal Exam: Soft, Normal Bowel Sounds - Extremities Exam Extremities Exam: Normal Inspection. absent: Pedal Edema - Back Exam Back Exam: NORMAL INSPECTION. absent: paraspinal tenderness - Neurological Exam Neurological Exam: Alert, Awake, Oriented x3 - Psychiatric Exam Psychiatric exam: Normal Affect, Normal Mood. absent: Depressed - Skin Skin Exam: Dry, Intact Assessment and Plan - Assessment and Plan (Free Text) Assessment: 68yo M with PMH of DM2, CVA, HTN, HLD, glaucoma, neuropathy presenting with lower extremity weakness, admitted for CVA r/o. CT showing chronic changes. Plan for [facility]. Plan: Spinal Stenosis - MRI L-Spine: grade 1 spondylolisthesis causing high grade stenosis in L4-5. gross facet joint degenrative arthropathy - Head CT: No intracranial hemorrhage. Generalized atrophy. Scattered nonspecific white matter changes. 3 mm right basal ganglia lacunar type infarct appears chronic. - Venous doppler LE: no evidence of DVT or superficial vein thrombosis b/l -CT L-spine as per Neurosurgery:There is an approximately a less than grade 1- grade 1 anterior listhesis at the L4-L5 level. Uncovering of the posterior superior surface of the disc with superior subligamentous extension of disc material over short distance dorsal to the posterior aspect of the L4 segment and severe central canal stenosis at this level are less well seen on this exam as compared to high-resolution MRI. Degenerative spondylosis also noted at the L5-S1 and L3-L4 levels and to a lesser degree the remaining levels also seen to better advantage on prior MRI. Please refer to that study and corresponding report for additional details. Questionable wall thickening of the posterior inferior margin of the urinary bladder possibly to some encroachment of the prostate gland. Possibility of intrinsic/invasive bladder bladder wall lesion not excluded. Consider follow-up urologic consultation and urinalysis.. - Neuro Checks q4h - B12 wnl - RPR negative - PT/OT Eval/Treat - Tylenol PRN pain - Start Decadron 4mg IV q12h - Neuro consulted, Dr. Manuel hung appreciated - Neurosurgery consulted, Dr. Vazquez :O.R. Friday @11.am. Pending Cardiac clearance -Cardiology consulted. Help appreciated. Diabetes mellitus with neuropathy - HbA1c 11.5 - insulin sliding scale coverage -Increased Lantus 40units HS (10/18/18) - Aspirin 81mg daily - Accuchecks - Hypoglycemia Protocol HLD - high TG - Crestor 10mg HS Hypertension - Enalapril 20mg daily Prophylaxis - GI prophylaxis: not indicated - Heparin SC q8h [facility] Dispo: Patient hemodynamically stable for d/c to [facility]. Currently pending insurance authorization. Patient expected to go to the [facility] Friday 11a.m. per Neurosurgery. Cardiology consulted for medical optimization/ clearance for surgery. Patient seen and case discussed with Dr. Dunia Gillespie, PGY-2
[2018-10-18 07:53] LABS: BASO % 0.3 % (0.0-2.0); LYMPH # 1.3 K/uL (1.0-4.3); LYMPH % 10.9 % (20.0-40.0); MEAN CELL VOLUME 90.5 fL (80.0-94.0); MEAN CORPUSCULAR HEMOGLOBIN 30.7 pg (27.0-31.0); MEAN PLATELET VOLUME 9.2 fL (7.2-11.7); MONO # 0.7 K/uL (0.0-0.8); MONO % 5.5 % (0.0-10.0); NEUT # 10.1 K/uL (1.8-7.0); NEUT % 83.3 % (50.0-75.0); RBC 4.55 Mil/uL (4.40-5.90); RED CELL DISTRIBUTION WIDTH 13.6 % (11.5-14.5); WHITE BLOOD COUNT 12.1 K/uL (4.8-10.8)
[2018-10-18 08:04] LABS: ALB/GLOB RATIO 1.6 (1.0-2.1); ALBUMIN 4.4 g/dL (3.5-5.0); ALT/SGPT 18 U/L (21-72); AST/SGOT 18 U/L (17-59); BLOOD UREA NITROGEN 33 mg/dL (9-20); CALCIUM 9.9 mg/dl (8.6-10.4); GFR NON-AFRICAN AMERICAN > 60
[2018-10-18] MEDS: (Novolin R) Insulin Human Regular 100 units/ml vial SC SCH ×4 (08:17→22:54)
[2018-10-18] MEDS: Dexamethasone 4 mg/1 ml IVP SCH ×2 (09:50→22:03)
--- NOTE | 2018-10-18 17:34 | CP.PCM.CON ---
History of Present Illness - History of Present Illness History of Present Illness: I was asked to see patient by Dr Duque Patient was seen 10/18/18 0492 Patient is a 68 year old male with HTn, hyperchoelsteroelmia who presents with gait disturbance. He has spinal stenosis ans requires surgery. he has no chest pain or dyspnea. Cardiac evaluation was requested. Review of Systems - Constitutional Constitutional: absent: As Per HPI, Anorexia, Chills, Daytime Sleepiness, Excessive Sweating, Fatigue, Fever, Frequent Falls, Headache, Increased Appe tite, Lethargy, Malaise, Night Sweats, Snoring, Sleep Apnea, Weight Gain, Weight Loss, Weakness, Other - EENT Eyes: absent: As Per HPI, Blind Spots, Blurred Vision, Change in Vision, Decreased Night Vision, Diplopia, Discharge, Dry Eye, Exophthalmos, Floaters, Irritation, Itchy Eyes, Loss of Peripheral Vision, Pain, Photophobia, Requires Corrective Lenses, Sees Flashes, Spots in Vision, Tunnel Vision, Other Visual Disturbances, Loss of Vision, Other Ears: absent: As Per HPI, Decreased Hearing, Ear Discharge, Ear Pain, Tinnitus, Abnormal Hearing, Disequilibrium, Dizziness, Other Nose/Mouth/Throat: absent: As Per HPI, Epistaxis, Nasal Congestion, Nasal Discharge, Nasal Obstruction, Nasal Trauma, Nose Pain, Post Nasal Drip, Sinus Pain, Sinus Pressure, Bleeding Gums, Change in Voice, Dental Pain, Dry Mouth, Dysphagia, Halitosis, Hoarsness, Lip Swelling, Mouth Lesions, Mouth Pain, Odynophagia, Sore Throat, Throat Swelling, Tongue Swelling, Facial Pain, Neck Pain, Neck Mass, Other - Cardiovascular Cardiovascular: absent: As Per HPI, Acrocyanosis, Chest Pain, Chest Pain at Rest, Chest Pain with Activity, Claudication, Diaphoresis, Dyspnea, Dyspnea on Exertion, Edema, Irregular Heart Rhythm, Pain Radiating to Arm/Neck/Jaw, Leg Edema, Leg Ulcers, Lightheadedness, Orthopnea, Palpitations, Paroxysmal Nocturnal Dyspnea, Pedal Edema, Radiating Pain, Rapid Heart Rate, Slow Heart Rate, Syncope, Other - Respiratory Respiratory: absent: As Per HPI, Cough, Dyspnea, Hemoptysis, Dyspnea on Exertion, Wheezing, Snoring, Stridor, Pain on Inspiration, Chest Congestion, Excessive Mucous Production, Change in Mucous Color, Pain with Coughing, Other - Gastrointestinal Gastrointestinal: absent: As Per HPI, Abdominal Pain, Belching, Bloating, Change in Bowel Habits, Change in Stool Character, Coffee Ground Emesis, Constipation, Cramping, Diarrhea, Dyspepsia, Dysphagia, Early Satiety, Excessive Flatus, Fecal Incontinence, Heartburn, Hematemesis, Hematochezia, Loose Stools, Melena, Nausea, Odynophagia, Temesmus, Vomiting, Other - Genitourinary Genitourinary: absent: As Per HPI, Change in Urinary Stream, Difficulty Urinating, Dysuria, Flank Pain, Hematuria, Pyuria, Nocturia, Urinary Incontinence, Urinary Frequency, Urinary Hesitance, Urinary Urgency, Voiding Freq/Small Amts, Freq UTI, Hx Renal/Bladder Calculi, Hx /Renal Surgery, Bladder Distension, Other - Musculoskeletal Musculoskeletal: Abnormal Gait, Limited Range of Motion, Numbness - Integumentary Integumentary: absent: As Per HPI, Acne, Alopecia, Bleeding Lesions, Change in Hair, Change in Nails, Change in Pigmentation, Changing Lesions, Dry Skin, Erythema, Furuncle, Hirsutism, Lesions, New Lesions, Non-Healing Lesions, Photosensitivity, Pruritus, Rash, Skin Pain, Skin Ulcer, Sores, Striae, Swelling, Unusual Bruising, Wounds, Jaundice, Other - Neurological Neurological: Radicular Pain, Tingling - Psychiatric Psychiatric: absent: As Per HPI, Abnormal Sleep Pattern, Anhedonia, Anxiety, Auditory Hallucinations, Behavioral Changes, Change in Appetite, Change in Libido, Confusion, Depression, Difficulty Concentrating, Hallucinations, Homicidal Ideation, Hopelessness, Irritability, Memory Loss, Mood Swings, Panic Attacks, Paranoia, Suicidal Ideation, Visual Hallucinations, Tactile Hallucinations, Other - Endocrine Endocrine: absent: As Per HPI, Change in Body Appearance, Change in Libido, Cold Intolorance, Deepening of Voice, Excessive Sweating, Fatigue, Flushing, Heat Intolorance, Increase in Ring/Shoe/Hat Size, Palpitations, Polydipsia, Polyphagia, Polyuria, Other - Hematologic/Lymphatic Hematologic: absent: As Per HPI, Easy Bleeding, Easy Bruising, Lymphadenopathy, Other Past Patient History - Infectious Disease Hx of Infectious Diseases: None - Past Medical History & Family History Past Medical History?: Yes - Past Social History Smoking Status: Former Smoker - CARDIAC Hx Hypercholesterolemia: Yes Hx Hypertension: Yes - PULMONARY Hx Respiratory Disorders: No - NEUROLOGICAL Hx Neurological Disorder: No - HEENT Hx HEENT Problems: No - RENAL Hx Chronic Kidney Disease: No - ENDOCRINE/METABOLIC Hx Diabetes Mellitus Type 2: Yes - HEMATOLOGICAL/ONCOLOGICAL Hx Blood Disorders: No - INTEGUMENTARY Hx Dermatological Problems: No - MUSCULOSKELETAL/RHEUMATOLOGICAL Hx Musculoskeletal Disorders: No Hx Falls: No - GASTROINTESTINAL Hx Gastrointestinal Disorders: No - GENITOURINARY/GYNECOLOGICAL Hx Genitourinary Disorders: No - PSYCHIATRIC Hx Substance Use: No - SURGICAL HISTORY Hx Cholecystectomy: Yes (1994) - ANESTHESIA Hx Anesthesia: Yes Hx Anesthesia Reactions: No Hx Malignant Hyperthermia: No Meds Allergies/Adverse Reactions: Allergies Allergy/AdvReac Type Severity Reaction Status Date / Time No Known Allergies Allergy Verified 10/12/18 15:02 - Medications Medications: Current Medications Acetaminophen (Tylenol 325mg Tab) 650 mg PO Q6 PRN PRN Reason: Pain, moderate (4-7) Last Admin: 10/17/18 21:57 Dose: 650 mg Aspirin (Ecotrin) 81 mg PO DAILY [facility] Last Admin: 10/18/18 09:50 Dose: 81 mg Dexamethasone (Decadron Inj) 4 mg IVP Q12 [facility] Last Admin: 10/18/18 09:50 Dose: 4 mg Dextrose (Dextrose 50% Inj) 0 ml IV STAT PRN; Protocol PRN Reason: Hypoglycemia Protocol Dextrose (Glutose 15) 0 gm PO ONCE PRN; Protocol PRN Reason: Hypoglycemia Protocol Enalapril Maleate (Vasotec) 20 mg PO DAILY [facility] Last Admin: 10/18/18 09:51 Dose: 20 mg Glucagon (Glucagen Diagnostic Kit) 0 mg IM STAT PRN; Protocol PRN Reason: Hypoglycemia Protocol Heparin Sodium (Porcine) (Heparin) 5,000 units SC Q8 [facility] Last Admin: 10/18/18 13:17 Dose: 5,000 units Dextrose (Dextrose 5% In Water 1000 Ml) 1,000 mls @ 0 mls/hr IV .Q0M PRN; Protocol PRN Reason: Hypoglycemia Protocol Insulin Glargine (Lantus) 40 unit SC HS [facility] Insulin Human Regular (Novolin R) 0 unit SC ACHS [facility]; Protocol Last Admin: 10/18/18 17:23 Dose: 10 units Rosuvastatin Calcium (Crestor) 10 mg PO HS [facility] Last Admin: 10/17/18 21:57 Dose: 10 mg Physical Exam - Constitutional Appears: Non-toxic - Head Exam Head Exam: NORMAL INSPECTION - Eye Exam Eye Exam: Normal appearance - ENT Exam ENT Exam: Mucous Membranes Moist - Neck Exam Neck exam: Positive for: Full Rom - Respiratory Exam Respiratory Exam: Decreased Breath Sounds - Cardiovascular Exam Cardiovascular Exam: REGULAR RHYTHM - GI/Abdominal Exam GI & Abdominal Exam: Normal Bowel Sounds - Rectal Exam Rectal Exam: Deferred - Extremities Exam Extremities exam: Negative for: pedal edema - Back Exam Back exam: NORMAL INSPECTION - Neurological Exam Neurological exam: Alert, Oriented x3 - Psychiatric Exam Psychiatric exam: Normal Affect - Skin Skin Exam: Normal Color Results - Vital Signs Recent Vital Signs: Last Vital Signs Temp 98.1 F 10/18/18 15:30 Pulse 75 10/18/18 15:30 Resp 18 10/18/18 15:30 BP 135/70 10/18/18 15:30 Pulse Ox 99 10/18/18 15:30 - Labs Result Diagrams: 10/18/18 07:39 10/18/18 07:39 Labs: Laboratory Results - last 24 hr 10/17/18 10/17/18 10/17/18 11:14 17:07 21:06 WBC RBC Hgb Hct MCV MCH MCHC RDW Plt Count MPV Neut % (Auto) Lymph % (Auto) [place] % (Auto) Eos % (Auto) Baso % (Auto) Neut # (Auto) Lymph # (Auto) [place] # (Auto) Eos # (Auto) Baso # (Auto) Sodium Potassium Chloride Carbon Dioxide Anion Gap BUN Creatinine Est GFR ( Amer) Est GFR (Non-Af Amer) POC Glucose (mg/dL) 455 H* 406 H* 452 H* Random Glucose Calcium Phosphorus Magnesium Total Bilirubin AST ALT Alkaline Phosphatase Total Protein Albumin Globulin Albumin/Globulin Ratio 10/18/18 10/18/18 10/18/18 02:03 06:15 07:39 WBC RBC Hgb Hct MCV MCH MCHC RDW Plt Count MPV Neut % (Auto) Lymph % (Auto) [place] % (Auto) Eos % (Auto) Baso % (Auto) Neut # (Auto) Lymph # (Auto) [place] # (Auto) Eos # (Auto) Baso # (Auto) Sodium 135 Potassium 4.8 Chloride 100 Carbon Dioxide 26 Anion Gap 14 BUN 33 H Creatinine 1.1 Est GFR ( Amer) > 60 Est GFR (Non-Af Amer) > 60 POC Glucose (mg/dL) 418 H* 353 H Random Glucose 312 H Calcium 9.9 Phosphorus 4.2 Magnesium 2.1 Total Bilirubin 0.4 AST 18 ALT 18 L Alkaline Phosphatase 70 Total Protein 7.2 Albumin 4.4 Globulin 2.8 Albumin/Globulin Ratio 1.6 10/18/18 10/18/18 07:39 11:06 WBC 12.1 H RBC 4.55 Hgb 14.0 Hct 41.2 MCV 90.5 MCH 30.7 MCHC 34.0 RDW 13.6 Plt Count 258 MPV 9.2 Neut % (Auto) 83.3 H Lymph % (Auto) 10.9 L [place] % (Auto) 5.5 Eos % (Auto) 0.0 Baso % (Auto) 0.3 Neut # (Auto) 10.1 H Lymph # (Auto) 1.3 [place] # (Auto) 0.7 Eos # (Auto) 0.0 Baso # (Auto) 0.0 Sodium Potassium Chloride Carbon Dioxide Anion Gap BUN Creatinine Est GFR ( Amer) Est GFR (Non-Af Amer) POC Glucose (mg/dL) 437 H* Random Glucose Calcium Phosphorus Magnesium Total Bilirubin AST ALT Alkaline Phosphatase Total Protein Albumin Globulin Albumin/Globulin Ratio - EKG Data EKG Interpreted by: Myself EKG shows normal: Sinus rhythm Assessment & Plan (1) Spinal stenosis Assessment and Plan: patient has o current angina or heart failure. he has a normal resting EKG. he is at intermediate cardiovascular risk. he will benefit from conitnued medical therapy. There is no cardiovascular contraindication to the planned surgery. He is medically optimized. Status: Acute (2) Diabetes mellitus with neuropathy Assessment and Plan: patient will need blood glucose control Status: Chronic (3) HTN (hypertension) Assessment and Plan: blood pressure control Status: Chronic
[2018-10-18] MEDS ORDERED: (Lantus) Insulin Glargine, Recombinant SC SCH (22:00)
[2018-10-18] MEDS: (Lantus) Insulin Glargine, Recombinant SC SCH (22:53)
--- NOTE | 2018-10-19 06:38 | CON ---
DATE: 10/16/2018 REASON FOR CONSULTATION: Difficulty walking. HISTORY OF PRESENT ILLNESS: The patient is a 68-year-old gentleman who was seen with Lexi nurse on the floor translating. He states that he has had difficulty walking for several months but the past several weeks, he really cannot walk at all and he keeps falling. He had been using a cane but that is not helping him anymore. He complains of both legs feeling weak, perhaps the right a little more than the left. He was brought to the hospital with these complaints and admitted for workup. He denies any problems with bowel or bladder control though he states that he really has to push now to be able to urinate which is a change. PAST MEDICAL HISTORY: Significant for type 2 diabetes. He has hypertension, hyperlipidemia. He had a stroke in 2018. He has a history of diabetic neuropathy. MEDICATIONS: Listed on the chart. ALLERGIES: NO KNOWN ALLERGIES. PAST SURGICAL HISTORY: He had a catheterization of right femoral artery in 2015. 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 Evidently, prior to that, he had wound debridement with infected tissue and bone cultures being taken. SOCIAL HISTORY: He states he had smoked for least 15 years but quit more than 15 years ago. Denies any alcohol or drug use. He states he lives in an apartment with a two-or three-krystyna walk-up. PHYSICAL EXAMINATION: EXTREMITIES: He is complaining of back pain but has much pain in the legs. He moves both legs actively but has difficulty holding legs up off the bed for any significant length of time, particularly with the knee extended. He has a marked weakness of his EHL bilaterally. Anterior tib are not too bad. He does have contraction of the tendon to the great toe, so he is at least a 3/5 but again has no strength against resistance at all. Distal pulses are only fair. No hyperreflexia noted. Babinski appears to be upgoing bilaterally. No clonus is present. He had an MRI done of lumbar spine which shows severe stenosis at the 4-5 level with no CSF getting through. He has a grade 1 spondylolisthesis there as well. They did not read any spondylotic defects, but again that is hard to see on the MRI and a CAT scan would show that better. To my review, there may be an extruded piece of disc going up behind the L4 body. It is not read that way by the radiologist. He has marked disc collapse at the 4-5 level. Other discs showed normal age desiccation but no significant loss of height at 3-4 nor 5-1. IMPRESSION: Severe spinal stenosis at the L4-L5 level. He may be developing a bit of cauda equina in terms of his talking about having to really push to empty his bladder and even on the MRI report, the radiologist incidentally noted that the bladder appeared to be quite distended. PLAN: I think this gentleman needs at least a decompression of the L4-L5 level. I would get a CAT scan to see if there is any evidence of pars defects there which might make me go more towards fusing the level, but I think in the absence of that I would probably just recommend doing the laminectomy to get the pressure off and see how much he improves with the understanding he may need something else done down the line. I explained that the concern here would be the longer he has the weakness and does not walk, sometimes the harder it is to recover that, especially in light of the diabetes, as well as the fact that if the pressure increases he may subsequently lose control of bowel and bladder and he may not get that back at all. This was explained to him as mentioned with the nurse translating. He states he understands that and does not feel he can go on the way he is but wants to think it over and he will let me know tomorrow, Friday, what his decision is. Thank you for allowing me to participate in the care of this patient. Kentrell Mayo MD
[2018-10-19] MEDS ORDERED: Absorbable Gelatin Sponge Size 100 ONE ×2 (07:13→10:25)
[2018-10-19] MEDS ORDERED: Lidocaine/Epinephrine 1% 1:100000 10 ML IJ ONE ×2 (07:13→10:25)
[2018-10-19] MEDS ORDERED: Bupivacaine HCl 0.5% PF (10 ml) Inj ONE (07:14)
[2018-10-19] MEDS ORDERED: Thrombin Topical 20,000 Intl Units Spray Kit TOP ONE (07:14)
[2018-10-19] MEDS: (Novolin R) Insulin Human Regular 100 units/ml vial SC SCH ×4 (08:07→21:24)
--- NOTE | 2018-10-19 08:14 | CP.PCM.PN ---
Subjective - Date & Time of Evaluation Date of Evaluation: 10/19/18 Time of Evaluation: 08:10 - Subjective Subjective: Augustine Pringle PGY1 progress note for Dr. Duque Patient was examined at bedside this morning. He reports continuation of tingling and cramping in the hands b/l. He denies shortness of breath, chest pain, dizziness, nausea, vomiting, diarrhea, dysuria. Objective - Vital Signs/Intake and Output Vital Signs (last 24 hours): Temp Pulse Resp BP Pulse Ox 98 F 61 20 138/67 97 10/19/18 00:00 10/19/18 00:00 10/19/18 00:00 10/19/18 00:00 10/19/18 00:00 Intake and Output: 10/19/18 10/19/18 06:59 18:59 Output Total 1000 Balance -1000 - Medications Medications: Current Medications Acetaminophen (Tylenol 325mg Tab) 650 mg PO Q6 PRN PRN Reason: Pain, moderate (4-7) Last Admin: 10/18/18 22:08 Dose: 650 mg Aspirin (Ecotrin) 81 mg PO DAILY [facility] Last Admin: 10/18/18 09:50 Dose: 81 mg Dexamethasone (Decadron Inj) 4 mg IVP Q12 [facility] Last Admin: 10/18/18 22:03 Dose: 4 mg Dextrose (Dextrose 50% Inj) 0 ml IV STAT PRN; Protocol PRN Reason: Hypoglycemia Protocol Dextrose (Glutose 15) 0 gm PO ONCE PRN; Protocol PRN Reason: Hypoglycemia Protocol Enalapril Maleate (Vasotec) 20 mg PO DAILY [facility] Last Admin: 10/18/18 09:51 Dose: 20 mg Glucagon (Glucagen Diagnostic Kit) 0 mg IM STAT PRN; Protocol PRN Reason: Hypoglycemia Protocol Dextrose (Dextrose 5% In Water 1000 Ml) 1,000 mls @ 0 mls/hr IV .Q0M PRN; Protocol PRN Reason: Hypoglycemia Protocol Insulin Glargine (Lantus) 40 unit SC HS [facility] Last Admin: 10/18/18 22:53 Dose: 40 unit Insulin Human Regular (Novolin R) 0 unit SC ACHS [facility]; Protocol Last Admin: 10/19/18 08:07 Dose: 8 units Rosuvastatin Calcium (Crestor) 10 mg PO HS [facility] Last Admin: 02/24/19 22:03 Dose: 10 mg - Labs Labs: 10/18/18 07:39 10/18/18 07:39 PT 11.9 SECONDS (9.7-12.2) 10/12/18 16:05 INR 1.1 10/12/18 16:05 APTT 32 SECONDS (21-34) 10/12/18 16:05 - Additional Findings Additional findings: - Head Exam Head Exam: ATRAUMATIC, NORMAL INSPECTION - Eye Exam Eye Exam: EOMI, Normal appearance, PERRL Pupil Exam: NORMAL ACCOMODATION - ENT Exam ENT Exam: Mucous Membranes Moist, Normal Oropharynx - Respiratory Exam Respiratory Exam: Clear to Ausculation Bilateral, NORMAL BREATHING PATTERN. absent: Prolonged Expiratory Phase, Respiratory Distress - Cardiovascular Exam Cardiovascular Exam: REGULAR RHYTHM, +S1, +S2 - GI/Abdominal Exam GI & Abdominal Exam: Soft, Normal Bowel Sounds - Extremities Exam Extremities Exam: Normal Inspection. absent: Pedal Edema - Back Exam Back Exam: NORMAL INSPECTION. absent: paraspinal tenderness - Neurological Exam Neurological Exam: Alert, Awake, Oriented x3 - Psychiatric Exam Psychiatric exam: Normal Affect, Normal Mood. absent: Depressed - Skin Skin Exam: Dry, Intact Assessment and Plan - Assessment and Plan (Free Text) Assessment: 68yo M with PMH of DM2, CVA, HTN, HLD, glaucoma, neuropathy presenting with lower extremity weakness, admitted for CVA r/o. CT showing chronic changes. Laminectomy today. Plan: Spinal Stenosis - MRI L-Spine: grade 1 spondylolisthesis causing high grade stenosis in L4-5. gross facet joint degenrative arthropathy - Head CT: No intracranial hemorrhage. Generalized atrophy. Scattered nonspecific white matter changes. 3 mm right basal ganglia lacunar type infarct appears chronic. - Venous doppler LE: no evidence of DVT or superficial vein thrombosis b/l - CT L-spine as per Neurosurgery: less than grade 1-grade 1 anterior listhesis at the L4-L5 level. Uncovering of the posterior superior surface of the disc with superior subligamentous extension of disc material over short distance dorsal to the posterior aspect of the L4 segment and severe central canal stenosis at this level are less well seen on this exam as compared to high- resolution MRI. Degenerative spondylosis also noted at the L5-S1 and L3-L4 levels and to a lesser degree the remaining levels also seen to better advantage on prior MRI. Please refer to that study and corresponding report for additional details. Questionable wall thickening of the posterior inferior margin of the urinary bladder possibly to some encroachment of the prostate gland. Possibility of intrinsic/invasive bladder bladder wall lesion not excluded. Consider follow-up urologic consultation and urinalysis. - MRI C-spine: multilevel degenerative disc disease worse at C4-5 with broad- based disc ostephyte complex and moderate ligamentum flavom infolding with severe spinal canal stenosis. No intrinsic cord signal abnormality. Congenitally narrow spinal canal. - Neuro Checks q4h - PT/OT Eval/Treat - Tylenol PRN pain - Start Decadron 4mg IV q12h - Neuro consulted, Dr. Manuel hung appreciated - Neurosurgery consulted, Dr. Vazquez :[facility] Friday @11.am -Cardiology consulted, Dr. Diaz - patient medically optimized and will benefit form surgery Diabetes mellitus with neuropathy - HbA1c 11.5 - insulin sliding scale coverage - Lantus 40u HS - Novolin 70/30 20u [facility] - Aspirin 81mg daily - Accuchecks - Hypoglycemia Protocol HLD - high TG - Crestor 10mg HS Hypertension - Enalapril 20mg daily Prophylaxis - GI prophylaxis: not indicated - Heparin SC q8h CCD Dispo: Patient expected to go to the [facility] Friday 11a.m. per Neurosurgery. Patient seen and case discussed with Dr. Duque
[2018-10-19] MEDS ORDERED: Bacitracin 50,000 UNIT in Sodium Chloride 0.9% Irrig 1,000 ML IR SCH (08:56)
[2018-10-19] MEDS ORDERED: Bupivacaine Liposomal Inj 20 ml INFIL ONE (08:59)
[2018-10-19] MEDS: Dexamethasone 4 mg/1 ml IVP SCH ×3 (09:50→21:24)
[2018-10-19] MEDS ORDERED: ceFAZolin 1 gm in NS 2 GM/200 ML BAG IVPB ONE (10:25)
[2018-10-19] MEDS ORDERED: Midazolam 2 MG/2 ML VIAL ONE (11:27)
[2018-10-19] MEDS ORDERED: Propofol 10 mg/ml Inj (20 ML) ONE ×2 (11:27→11:50)
[2018-10-19] MEDS ORDERED: Rocuronium 10 mg/ml (5 ml) ONE (11:28)
[2018-10-19] MEDS ORDERED: Succinylcholine Chloride 20 mg/ml Syr (5 ml) IV ONE (11:28)
[2018-10-19] MEDS ORDERED: Propofol 10 mg/ml 1,000 MG/100 ML VIAL ONE (11:32)
[2018-10-19] MEDS: (Novolin 70/30) NPH/Regular 70/30 Units/ml 10 ml vial SC SCH ×2 (12:09→17:13)
[2018-10-19] MEDS ORDERED: HYDROmorphone 0.5 mg/0.5 ml ISec IVP PRN (13:02)
[2018-10-19] MEDS: Potassium Chl 40 mEq in D5-1/2 1,000 ML IV SCH (14:41)
--- NOTE | 2018-10-19 16:22 | CP.PCM.PN ---
Subjective - Date & Time of Evaluation Date of Evaluation: 10/19/18 Time of Evaluation: 16:20 - Subjective Subjective: Neuro Follow-Up Note: Mr. Pelaez was evaluated this afternoon at bedside. He is POD # 0 of decompression lumbar laminectomy L4-L5 with Dr. Mayo. Pt states that he feels good. He offers no complaints. Is eager to begin rehab once he is d/c later this week. Denies h/a, dizziness, visual changes, chest pain, palpitations, sob, cough abd pain, n/v/d, chills, bowel/bladder incontinence, paresthesias to extremities. Objective - Vital Signs/Intake and Output Vital Signs (last 24 hours): Temp Pulse Resp BP Pulse Ox 97.6 F 58 L 18 171/76 H 100 10/19/18 15:22 10/19/18 15:22 10/19/18 15:22 10/19/18 15:22 10/19/18 15:22 Intake and Output: 10/19/18 10/19/18 06:59 18:59 Intake Total 400 Output Total 1000 Balance -1000 400 - Medications Medications: Current Medications Acetaminophen (Tylenol 325mg Tab) 650 mg PO Q6 PRN PRN Reason: Pain, moderate (4-7) Last Admin: 10/18/18 22:08 Dose: 650 mg Aspirin (Ecotrin) 81 mg PO DAILY [facility] Last Admin: 10/19/18 11:38 Dose: Not Given Dexamethasone (Decadron Inj) 2 mg IVP Q12 [facility] Last Admin: 10/19/18 14:34 Dose: Not Given Dextrose (Dextrose 50% Inj) 0 ml IV STAT PRN; Protocol PRN Reason: Hypoglycemia Protocol Dextrose (Glutose 15) 0 gm PO ONCE PRN; Protocol PRN Reason: Hypoglycemia Protocol Enalapril Maleate (Vasotec) 20 mg PO DAILY [facility] Last Admin: 10/19/18 09:50 Dose: 20 mg Glucagon (Glucagen Diagnostic Kit) 0 mg IM STAT PRN; Protocol PRN Reason: Hypoglycemia Protocol Dextrose (Dextrose 5% In Water 1000 Ml) 1,000 mls @ 0 mls/hr IV .Q0M PRN; Protocol PRN Reason: Hypoglycemia Protocol Potassium Chloride/Dextrose/Sod Cl (Potassium Chl 40 Meq In D5-1/2ns) 1,000 mls @ 80 mls/hr IV .[id number] [facility] Last Admin: 10/19/18 14:41 Dose: 80 mls/hr Insulin Glargine (Lantus) 40 unit SC [facility] Last Admin: 10/18/18 22:53 Dose: 40 unit Insulin Human Isoph/Insulin Regular (Novolin 70/30 (70/30 Units/Ml) 10 Ml) 20 units SC [facility]IDCC [facility] Last Admin: 10/19/18 12:09 Dose: Not Given Insulin Human Regular (Novolin R) 0 unit SC ACHS [facility]; Protocol Last Admin: 10/19/18 11:39 Dose: Not Given Rosuvastatin Calcium (Crestor) 10 mg PO [facility] Last Admin: 10/18/18 22:03 Dose: 10 mg - Labs Labs: 10/18/18 07:39 10/18/18 07:39 PT 11.9 SECONDS (9.7-12.2) 10/12/18 16:05 INR 1.1 10/12/18 16:05 APTT 32 SECONDS (21-34) 10/12/18 16:05 - Constitutional Appears: Well, Non-toxic, No Acute Distress - Head Exam Head Exam: ATRAUMATIC, NORMAL INSPECTION, NORMOCEPHALIC - Eye Exam Eye Exam: EOMI, Normal appearance, PERRL Pupil Exam: NORMAL ACCOMODATION, PERRL - ENT Exam ENT Exam: Mucous Membranes Moist - Neck Exam Neck Exam: Normal Inspection - Respiratory Exam Respiratory Exam: NORMAL BREATHING PATTERN - Extremities Exam Extremities Exam: Full ROM. absent: Calf Tenderness, Pedal Edema Additional comments: Able to move all extremities. Some weakness noted to BLE but improved compared to when I last saw him on Friday. - Neurological Exam Neurological Exam: Alert, Awake, CN II-XII Intact, Oriented x3, Reflexes Normal Neuro motor strength exam: Left Upper Extremity: 5, Right Upper Extremity: 5, Left Lower Extremity: 4 (plantar flexion 4/5), Right Lower Extremity: 4 (plantar flexion 4/5) Additional comments: Speech clear, fluid Follows all commands Some weakness noted to BLE but normal plantar flexion; strength improved since Friday when I saw him last. Sensation intact b/l throughout. No tremors. Toes down going b/l Gait not assessed. - Psychiatric Exam Psychiatric exam: Normal Affect, Normal Mood - Skin Skin Exam: Normal Color Assessment and Plan (1) Spinal stenosis Assessment & Plan: Imaging reviewed: -MRI C-Spine (10/17/18): 1. Multilevel degenerative disc disease, worse at C4-5 with a broad-based disc osteophyte complex and moderate ligamentum flavum infolding with severe spinal canal stenosis. No intrinsic cord signal abnormality. 2. 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 -L-Spine CT (10/15/18): There is an approximately a less than grade 1-grade 1 anterior listhesis at the L4-L5 level. Uncovering of the posterior superior surface of the disc with superior subligamentous extension of disc material over short distance dorsal to the posterior aspect of the L4 segment and severe central canal stenosis at this level are less well seen on this exam as compared to high-resolution MRI. Degenerative spondylosis also noted at the L5-S1 and L3- L4 levels and to a lesser degree the remaining levels also seen to better advantage on prior MRI. Please refer to that study and corresponding report for additional details. Questionable wall thickening of the posterior inferior margin of the urinary bladder possibly to some encroachment of the prostate gland. Possibility of intrinsic/invasive bladder bladder wall lesion not excluded. Consider follow-up urologic consultation and urinalysis. -L-Spine MRI (10/13/18): 1. High-grade central canal stenosis L4-5 due to grade 1 spondylolisthesis, generalized disc bulging and gross facet joint degenerative arthropathy. No disc herniation. Multilevel degenerative neural foraminal stenoses. No additional spondylolisthesis. No suspicious epidural or intrathecal enhancement appreciated. 3. Incidental note is made of markedly distended urinary bladder. -Post-op management of decompression lumbar laminectomy L4-L5 deferred to neurosurgery team. -Continue Decadron as ordered; taper began this afternoon. -Continue PT; recommend [facility] upon d/c. -Notify neuro team of any acute changes in pt's condition. Carla Carlisle DNP, SENIOR AUTOMATION ENGINEER Case discussed with Dr. Miller Status: Acute
[2018-10-19] MEDS: (Lantus) Insulin Glargine, Recombinant SC SCH (21:25)
[2018-10-20 01:13] VITALS: RESP 20
[2018-10-20] MEDS: Potassium Chl 40 mEq in D5-1/2 1,000 ML IV SCH ×3 (01:15→14:03)
[2018-10-20 07:37] LABS: BASO % 0.2 % (0.0-2.0); EOS % 0.1 % (0.0-4.0); HEMOGLOBIN 13.6 g/dL (12.0-18.0); LYMPH # 1.8 K/uL (1.0-4.3); LYMPH % 15.2 % (20.0-40.0); MEAN CELL VOLUME 89.8 fL (80.0-94.0); MEAN CORPUSCULAR HEMOGLOBIN 30.6 pg (27.0-31.0); MEAN CORPUSCULAR HGB CONC 34.1 g/dL (33.0-37.0); MEAN PLATELET VOLUME 8.7 fL (7.2-11.7); MONO # 1.2 K/uL (0.0-0.8); MONO % 10.5 % (0.0-10.0); NEUT # 8.7 K/uL (1.8-7.0); RBC 4.45 Mil/uL (4.40-5.90); RED CELL DISTRIBUTION WIDTH 13.2 % (11.5-14.5); WHITE BLOOD COUNT 11.7 K/uL (4.8-10.8)
[2018-10-20 08:07] LABS: ALB/GLOB RATIO 1.6 (1.0-2.1); ALBUMIN 4.3 g/dL (3.5-5.0); ALT/SGPT 22 U/L (21-72); AST/SGOT 33 U/L (17-59); BLOOD UREA NITROGEN 28 mg/dL (9-20); CALCIUM 9.8 mg/dl (8.6-10.4); GFR NON-AFRICAN AMERICAN > 60
[2018-10-20] MEDS: (Novolin 70/30) NPH/Regular 70/30 Units/ml 10 ml vial SC SCH ×3 (08:26→18:13)
[2018-10-20] MEDS: (Novolin R) Insulin Human Regular 100 units/ml vial SC SCH ×4 (08:28→21:23)
--- NOTE | 2018-10-20 08:28 | RAD ---
PROCEDURE: HISTORY: As above COMPARISON: None TECHNIQUE: Total fluoroscopic time utilized during the procedure: 7.4 seconds ; 3.16 mGy FINDINGS: Submitted images from the current procedure: 2 Please refer to the physician's notes performing the procedure. IMPRESSION: Less than 1 hour fluoroscopic time utilized during performance of the procedure
[2018-10-20] MEDS: Dexamethasone 4 mg/1 ml IVP SCH ×2 (09:30→21:22)
--- NOTE | 2018-10-20 10:12 | CP.PCM.PN ---
Subjective - Date & Time of Evaluation Date of Evaluation: 10/20/18 Time of Evaluation: 10:07 - Subjective Subjective: Augustine Pringle PGY1 Progress Note for Dr. Duque Pt was examined at bedside this morning. He reports improvement in his pain, cramping, and tingling sensations. He says he is feeling well today after the surgery. He has not yet had a BM. Objective - Vital Signs/Intake and Output Vital Signs (last 24 hours): Temp Pulse Resp BP Pulse Ox 97.9 F 69 20 151/61 H 99 10/20/18 07:00 10/20/18 07:00 10/20/18 07:00 10/20/18 09:30 10/20/18 07:00 Intake and Output: 10/20/18 10/20/18 06:59 18:59 Intake Total 600 Output Total 1500 Balance -900 - Medications Medications: Current Medications Acetaminophen (Tylenol 325mg Tab) 650 mg PO Q6 PRN PRN Reason: Pain, moderate (4-7) Last Admin: 10/18/18 22:08 Dose: 650 mg Aspirin (Ecotrin) 81 mg PO DAILY [facility] Last Admin: 10/20/18 09:30 Dose: 81 mg Dexamethasone (Decadron Inj) 2 mg IVP Q12 [facility] Last Admin: 10/20/18 09:30 Dose: 2 mg Dextrose (Dextrose 50% Inj) 0 ml IV STAT PRN; Protocol PRN Reason: Hypoglycemia Protocol Dextrose (Glutose 15) 0 gm PO ONCE PRN; Protocol PRN Reason: Hypoglycemia Protocol Docusate Sodium (Colace) 100 mg PO BID [facility] Last Admin: 10/20/18 09:30 Dose: 100 mg Enalapril Maleate (Vasotec) 20 mg PO DAILY [facility] Last Admin: 10/20/18 09:30 Dose: 20 mg Glucagon (Glucagen Diagnostic Kit) 0 mg IM STAT PRN; Protocol PRN Reason: Hypoglycemia Protocol Dextrose (Dextrose 5% In Water 1000 Ml) 1,000 mls @ 0 mls/hr IV .Q0M PRN; Protocol PRN Reason: Hypoglycemia Protocol Potassium Chloride/Dextrose/Sod Cl (Potassium Chl 40 Meq In D5-1/2ns) 1,000 mls @ 80 mls/hr IV .[id number] [facility] Last Admin: 10/20/18 04:38 Dose: 80 mls/hr Insulin Glargine (Lantus) 40 unit SC HS [facility] Last Admin: 10/19/18 21:25 Dose: 40 unit Insulin Human Isoph/Insulin Regular (Novolin 70/30 (70/30 Units/Ml) 10 Ml) 20 units SC [facility] Last Admin: 10/20/18 08:26 Dose: 20 units Insulin Human Regular (Novolin R) 0 unit SC ACHS [facility]; Protocol Last Admin: 10/20/18 08:28 Dose: 6 units Rosuvastatin Calcium (Crestor) 10 mg PO HS [facility] Last Admin: 10/19/18 21:24 Dose: 10 mg - Labs Labs: 10/20/18 07:12 10/20/18 07:12 PT 11.9 SECONDS (9.7-12.2) 10/12/18 16:05 INR 1.1 10/12/18 16:05 APTT 32 SECONDS (21-34) 10/12/18 16:05 - Additional Findings Additional findings: - Head Exam Head Exam: ATRAUMATIC, NORMAL INSPECTION - Eye Exam Eye Exam: EOMI, Normal appearance, PERRL Pupil Exam: NORMAL ACCOMODATION - ENT Exam ENT Exam: Mucous Membranes Moist, Normal Oropharynx - Respiratory Exam Respiratory Exam: Clear to Ausculation Bilateral, NORMAL BREATHING PATTERN. absent: Prolonged Expiratory Phase, Respiratory Distress - Cardiovascular Exam Cardiovascular Exam: REGULAR RHYTHM, +S1, +S2 - GI/Abdominal Exam GI & Abdominal Exam: Soft, Normal Bowel Sounds - Extremities Exam Extremities Exam: Normal Inspection. absent: Pedal Edema - Back Exam Back Exam: NORMAL INSPECTION. absent: paraspinal tenderness - Neurological Exam Neurological Exam: Alert, Awake, Oriented x3 - Psychiatric Exam Psychiatric exam: Normal Affect, Normal Mood. absent: Depressed - Skin Skin Exam: Dry, Intact Assessment and Plan - Assessment and Plan (Free Text) Assessment: 68yo M with PMH of DM2, CVA, HTN, HLD, glaucoma, neuropathy presenting with lower extremity weakness, admitted for CVA r/o. CT showing chronic changes. S/p laminectomy 10/19/18. Plan: Spinal Stenosis s/p Laminectomy L4/5 on 10/19/18 - MRI L-Spine: grade 1 spondylolisthesis causing high grade stenosis in L4-5. gross facet joint degenrative arthropathy - Head CT: No intracranial hemorrhage. Generalized atrophy. Scattered nonspecific white matter changes. 3 mm right basal ganglia lacunar type infarct appears chronic. - Venous doppler LE: no evidence of DVT or superficial vein thrombosis b/l - CT L-spine as per Neurosurgery: less than grade 1-grade 1 anterior listhesis at the L4-L5 level. Uncovering of the posterior superior surface of the disc with superior subligamentous extension of disc material over short distance dorsal to the posterior aspect of the L4 segment and severe central canal stenosis at this level are less well seen on this exam as compared to high- resolution MRI. Degenerative spondylosis also noted at the L5-S1 and L3-L4 levels and to a lesser degree the remaining levels also seen to better advantage on prior MRI. Please refer to that study and corresponding report for additional details. Questionable wall thickening of the posterior inferior margin of the urinary bladder possibly to some encroachment of the prostate gland. Possibility of intrinsic/invasive bladder bladder wall lesion not excluded. Consider follow-up urologic consultation and urinalysis. - MRI C-spine: multilevel degenerative disc disease worse at C4-5 with broad- based disc ostephyte complex and moderate ligamentum flavom infolding with severe spinal canal stenosis. No intrinsic cord signal abnormality. Congenitally narrow spinal canal. - Neuro Checks q4h - PT/OT Eval/Treat - Tylenol PRN pain - Taper Decadron as per Neurosurgery - Neuro consulted, Dr. Jackson - abhilash appreciated - Neurosurgery consulted, Dr. Vazquez - Cardiology consulted, Dr. Diaz - patient medically optimized and will benefit form surgery Diabetes mellitus with neuropathy - HbA1c 11.5 - insulin sliding scale coverage - Lantus 40u HS - Novolin 70/30 20u [facility] - Aspirin 81mg daily - Accuchecks - Hypoglycemia Protocol HLD - high TG - Crestor 10mg HS Hypertension - Enalapril 20mg daily Prophylaxis - GI prophylaxis: not indicated - Heparin SC q8h CCD Dispo: medically optimized, pending [facility]NEY placement Patient seen and case discussed with Dr. Duque
--- NOTE | 2018-10-20 11:17 | CP.PCM.PN ---
Subjective - Date & Time of Evaluation Date of Evaluation: 10/20/18 Time of Evaluation: 11:17 - Subjective Subjective: Neuro Follow-Up Note: Mr. Pelaez was evaluated this morning at bedside. He is POD # 1 of decompression lumbar laminectomy L4-L5 with Dr. Mayo. Pt states that he feels good. He complains of tingling to both hands on and off; none now. He is eager to be d/c to [facility] [place] tomorrow. Denies h/a, dizziness, visual changes, chest pain, palpitations, sob, cough abd pain, n/v/d, chills, bowel/bladder incontinence. Objective - Vital Signs/Intake and Output Vital Signs (last 24 hours): Temp Pulse Resp BP Pulse Ox 97.9 F 69 20 151/61 H 99 10/20/18 07:00 10/20/18 07:00 10/20/18 07:00 10/20/18 09:30 10/20/18 07:00 Intake and Output: 10/20/18 10/20/18 06:59 18:59 Intake Total 600 Output Total 1500 Balance -900 - Medications Medications: Current Medications Acetaminophen (Tylenol 325mg Tab) 650 mg PO Q6 PRN PRN Reason: Pain, moderate (4-7) Last Admin: 10/18/18 22:08 Dose: 650 mg Aspirin (Ecotrin) 81 mg PO DAILY [facility] Last Admin: 10/20/18 09:30 Dose: 81 mg Dexamethasone (Decadron Inj) 2 mg IVP Q12 [facility] Last Admin: 10/20/18 09:30 Dose: 2 mg Dextrose (Dextrose 50% Inj) 0 ml IV STAT PRN; Protocol PRN Reason: Hypoglycemia Protocol Dextrose (Glutose 15) 0 gm PO ONCE PRN; Protocol PRN Reason: Hypoglycemia Protocol Docusate Sodium (Colace) 100 mg PO BID [facility] Last Admin: 10/20/18 09:30 Dose: 100 mg Enalapril Maleate (Vasotec) 20 mg PO DAILY [facility] Last Admin: 10/20/18 09:30 Dose: 20 mg Glucagon (Glucagen Diagnostic Kit) 0 mg IM STAT PRN; Protocol PRN Reason: Hypoglycemia Protocol Dextrose (Dextrose 5% In Water 1000 Ml) 1,000 mls @ 0 mls/hr IV .Q0M PRN; Protocol PRN Reason: Hypoglycemia Protocol Potassium Chloride/Dextrose/Sod Cl (Potassium Chl 40 Meq In D5-1/2ns) 1,000 mls @ 80 mls/hr IV .[id number] [facility] Last Admin: 10/20/18 04:38 Dose: 80 mls/hr Insulin Glargine (Lantus) 40 unit SC HS [facility] Last Admin: 10/19/18 21:25 Dose: 40 unit Insulin Human Isoph/Insulin Regular (Novolin 70/30 (70/30 Units/Ml) 10 Ml) 20 units SC [facility]IDCC [facility] Last Admin: 10/20/18 08:26 Dose: 20 units Insulin Human Regular (Novolin R) 0 unit SC ACHS [facility]; Protocol Last Admin: 10/20/18 08:28 Dose: 6 units Rosuvastatin Calcium (Crestor) 10 mg PO [facility] Last Admin: 10/19/18 21:24 Dose: 10 mg - Labs Labs: 10/20/18 07:12 10/20/18 07:12 PT 11.9 SECONDS (9.7-12.2) 10/12/18 16:05 INR 1.1 10/12/18 16:05 APTT 32 SECONDS (21-34) 10/12/18 16:05 - Constitutional Appears: Well, Non-toxic, No Acute Distress - Head Exam Head Exam: ATRAUMATIC, NORMAL INSPECTION, NORMOCEPHALIC - Eye Exam Eye Exam: EOMI, Normal appearance, PERRL Pupil Exam: NORMAL ACCOMODATION, PERRL - ENT Exam ENT Exam: Mucous Membranes Moist - Neck Exam Neck Exam: Full ROM, Normal Inspection - Respiratory Exam Respiratory Exam: NORMAL BREATHING PATTERN - Extremities Exam Extremities Exam: Full ROM. absent: Calf Tenderness, Pedal Edema - Neurological Exam Neurological Exam: Alert, Awake, CN II-XII Intact, Oriented x3, Reflexes Normal Neuro motor strength exam: Left Upper Extremity: 5, Right Upper Extremity: 5, Left Lower Extremity: 5, Right Lower Extremity: 5 Additional comments: Speech clear, fluid Follows all commands Weakness to BLE has improved Sensation intact b/l throughout, including BUE. No tremors. Toes down going b/l Gait not assessed. - Psychiatric Exam Psychiatric exam: Normal Affect, Normal Mood - Skin Skin Exam: Normal Color Assessment and Plan (1) Spinal stenosis Assessment & Plan: Imaging reviewed: -MRI C-Spine (10/17/18): 1. Multilevel degenerative disc disease, worse at C4-5 with a broad-based disc osteophyte complex and moderate ligamentum flavum infolding with severe spinal canal stenosis. No intrinsic cord signal abnormality. 2. 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 -L-Spine CT (10/15/18): There is an approximately a less than grade 1-grade 1 anterior listhesis at the L4-L5 level. Uncovering of the posterior superior surface of the disc with superior subligamentous extension of disc material over short distance dorsal to the posterior aspect of the L4 segment and severe central canal stenosis at this level are less well seen on this exam as compared to high-resolution MRI. Degenerative spondylosis also noted at the L5-S1 and L3- L4 levels and to a lesser degree the remaining levels also seen to better advantage on prior MRI. Please refer to that study and corresponding report for additional details. Questionable wall thickening of the posterior inferior margin of the urinary bladder possibly to some encroachment of the prostate gland. Possibility of intrinsic/invasive bladder bladder wall lesion not excluded. Consider follow-up urologic consultation and urinalysis. -L-Spine MRI (10/13/18): 1. High-grade central canal stenosis L4-5 due to grade 1 spondylolisthesis, generalized disc bulging and gross facet joint degenerative arthropathy. No disc herniation. Multilevel degenerative neural foraminal stenoses. No additional spondylolisthesis. No suspicious epidural or intrathecal enhancement appreciated. 3. Incidental note is made of markedly distended urinary bladder. -Post-op management of decompression lumbar laminectomy L4-L5 deferred to neurosurgery team. -Decadron taper deferred to neurosurgery team. -Continue PT; recommend [facility] upon d/c. -Pt is neurologically stable for d/c to rehab. Please reconsult prn. Thank you for allowing us to participate in this pt's care. Carla Carlisle, SAL, PROBE OPERATOR Case discussed with Dr. Miller Status: Acute
--- NOTE | 2018-10-20 11:54 | CP.PCM.PN ---
Subjective - Date & Time of Evaluation Date of Evaluation: 10/20/18 Time of Evaluation: 11:53 - Subjective Subjective: pod1 has little pain ST good no dec to pin ok to go to subacute at any time Objective - Vital Signs/Intake and Output Vital Signs (last 24 hours): Temp Pulse Resp BP Pulse Ox 97.9 F 69 20 151/61 H 99 10/20/18 07:00 10/20/18 07:00 10/20/18 07:00 10/20/18 09:30 10/20/18 07:00 Intake and Output: 10/20/18 10/20/18 06:59 18:59 Intake Total 600 Output Total 1500 Balance -900 - Medications Medications: Current Medications Acetaminophen (Tylenol 325mg Tab) 650 mg PO Q6 PRN PRN Reason: Pain, moderate (4-7) Last Admin: 10/18/18 22:08 Dose: 650 mg Aspirin (Ecotrin) 81 mg PO DAILY [facility] Last Admin: 10/20/18 09:30 Dose: 81 mg Dexamethasone (Decadron Inj) 2 mg IVP Q12 [facility] Last Admin: 10/20/18 09:30 Dose: 2 mg Dextrose (Dextrose 50% Inj) 0 ml IV STAT PRN; Protocol PRN Reason: Hypoglycemia Protocol Dextrose (Glutose 15) 0 gm PO ONCE PRN; Protocol PRN Reason: Hypoglycemia Protocol Docusate Sodium (Colace) 100 mg PO BID [facility] Last Admin: 10/20/18 09:30 Dose: 100 mg Enalapril Maleate (Vasotec) 20 mg PO DAILY [facility] Last Admin: 10/20/18 09:30 Dose: 20 mg Glucagon (Glucagen Diagnostic Kit) 0 mg IM STAT PRN; Protocol PRN Reason: Hypoglycemia Protocol Dextrose (Dextrose 5% In Water 1000 Ml) 1,000 mls @ 0 mls/hr IV .Q0M PRN; Protocol PRN Reason: Hypoglycemia Protocol Potassium Chloride/Dextrose/Sod Cl (Potassium Chl 40 Meq In D5-1/2ns) 1,000 mls @ 80 mls/hr IV .[id number] [facility] Last Admin: 10/20/18 04:38 Dose: 80 mls/hr Insulin Glargine (Lantus) 40 unit SC HS [facility] Last Admin: 10/19/18 21:25 Dose: 40 unit Insulin Human Isoph/Insulin Regular (Novolin 70/30 (70/30 Units/Ml) 10 Ml) 20 units SC TIDCC [facility] Last Admin: 10/20/18 08:26 Dose: 20 units Insulin Human Regular (Novolin R) 0 unit SC ACHS [facility]; Protocol Last Admin: 10/20/18 08:28 Dose: 6 units Rosuvastatin Calcium (Crestor) 10 mg PO HS [facility] Last Admin: 10/19/18 21:24 Dose: 10 mg - Labs Labs: 10/20/18 07:12 10/20/18 07:12 PT 11.9 SECONDS (9.7-12.2) 10/12/18 16:05 INR 1.1 10/12/18 16:05 APTT 32 SECONDS (21-34) 10/12/18 16:05
[2018-10-20] MEDS: (Lantus) Insulin Glargine, Recombinant SC SCH (21:22)
--- NOTE | 2018-10-21 06:10 | OP ---
PROCEDURE DATE: 10/19/2018 PREOPERATIVE DIAGNOSIS: Severe spinal stenosis, possible cauda equina syndrome, L4-5. POSTOPERATIVE DIAGNOSIS: Severe spinal stenosis, possible cauda equina syndrome, L4-5. OPERATION: L4-5 decompressive laminectomy. SURGEON: Kentrell Mayo MD RAT EXTERMINATOR: Zeferino Vazquez MD OBJECTIVE: General endotracheal tube intubation. DESCRIPTION OF PROCEDURE: The patient was brought to the operating room. General anesthesia was achieved. Intravenous antibiotics were administered, and spinal cord monitor leads were placed throughout the patient's body. Real-time monitoring was done by a triage technician in the room. Remote monitoring was done by a physician as well. Sequential compression boots were placed to each of the patient's legs. The patient was gently transferred onto the operating table and placed prone on a Hardeep frame, keeping his abdomen free from pressure anteriorly. Care was taken to protect the elbows and knees from pressure points. A sterile drape was used to seal off the patient's peroneal region from the operative field, and his back was sterilely prepped and draped. Level of the incision was noted under fluoroscopy and was infiltrated with lidocaine with epinephrine. An incision was made sharply in the midline and taken down to subcutaneous tissue using sharp and blunt dissection. Hemostasis was achieved using electrocautery. The fascia was divided and stripped laterally off the spinous processes and lamina out to the level of the facet joints. Fluoroscopy was used to verify we are at the appropriate level and that was the case. A [place] rongeur was used to remove the spinous process and thin down the lamina, and laminectomy then carried out with [place] rongeurs in a caudal to cephalad fashion. This was done in the midline first and then out laterally on each side. There is a great deal of thickened ligamentum flavum and tissue near facet joints causing severe stenosis. Once the thecal sac was decompressed, it opened up nicely. Foraminotomies were carried out until it could easily pass the [place] tool out the L4 and L5 neural foramina bilaterally. The wound was copiously irrigated with antibiotic solution. Hemostasis was achieved with bipolar cautery as well as thrombinated Gelfoam powder. A large piece of solid Gelfoam was used to cover the exposed neural elements. The wound was then closed in layers with interrupted sutures of 0 Vicryl for the muscle and fascia. The subcutaneous tissue was irrigated with antibiotic solution and closed with 2-0 Vicryl, and the skin was approximated with running subcuticular suture of 3-0 Monocryl. Dermabond was applied to seal the closure. Once that was dry, the patient was gently transferred back onto his bed in a supine position. He was awakened and extubated. He was taken to recovery room in stable condition, having tolerated the procedure well. Blood loss was 50 mL. He received 600 mL of crystalloid during the operation. He was actively moving all extremities at time of his transfer, and no permanent electrophysiologic abnormalities were noted at the completion of the case. Kentrell Mayo MD
[2018-10-21 06:46] LABS: BASO % 0.3 % (0.0-2.0); EOS % 0.1 % (0.0-4.0); HEMOGLOBIN 13.5 g/dL (12.0-18.0); LYMPH # 1.7 K/uL (1.0-4.3); LYMPH % 12.9 % (20.0-40.0); MEAN CELL VOLUME 91.2 fL (80.0-94.0); MEAN CORPUSCULAR HEMOGLOBIN 30.2 pg (27.0-31.0); MEAN CORPUSCULAR HGB CONC 33.1 g/dL (33.0-37.0); MEAN PLATELET VOLUME 8.9 fL (7.2-11.7); MONO % 7.8 % (0.0-10.0); NEUT # 10.4 K/uL (1.8-7.0); NEUT % 78.9 % (50.0-75.0); RBC 4.48 Mil/uL (4.40-5.90); RED CELL DISTRIBUTION WIDTH 13.6 % (11.5-14.5); WHITE BLOOD COUNT 13.2 K/uL (4.8-10.8)
[2018-10-21 06:59] LABS: ALB/GLOB RATIO 1.4 (1.0-2.1); ALBUMIN 4.3 g/dL (3.5-5.0); ALT/SGPT 22 U/L (21-72); AST/SGOT 24 U/L (17-59); BLOOD UREA NITROGEN 33 mg/dL (9-20); CALCIUM 10.1 mg/dl (8.6-10.4); GFR NON-AFRICAN AMERICAN 55
[2018-10-21] MEDS: (Novolin 70/30) NPH/Regular 70/30 Units/ml 10 ml vial SC SCH ×3 (07:56→16:30)
[2018-10-21] MEDS: (Novolin R) Insulin Human Regular 100 units/ml vial SC SCH ×3 (07:56→16:30)
[2018-10-21] MEDS ORDERED: Dexamethasone 4 mg/1 ml IVP SCH (10:00)
--- NOTE | 2018-10-21 11:41 | CP.PCM.DIS ---
Provider - Provider Date of Admission: 10/12/18 16:54 Attending physician: Chace Duque Jr, MD Consults: 10/12/18 18:27 Neurology Consult Routine Comment: Consulting Provider: Jovani Jackson Consulting Physician: Jovani Jackson Reason for Consult: TIA 10/12/18 19:37 Case Management Referral Routine Comment: Physician Instructions: Reason For Exam: Reason for Referral: Dietitian Eval 10/15/18 15:15 Physician Consult Routine Comment: Consulting Provider: Zeferino Vazquez Consulting Physician: Zeferino Vazquez Reason for Consult: high grade central canal stenosis L4-L5 10/17/18 18:55 Cardiology Consult Routine Comment: Consulting Provider: Francesca Diaz Consulting Physician: Francesca Diaz Reason for Consult: medical optimization/surgical clearance Time Spent in preparation of Discharge (in minutes): 70 Hospital Course - Lab Results Lab Results: Micro Results 10/12/18 17:16 Urine Random Urine Culture - Final <10,000 CFU/ML. MULTIPLE SPECIES. PROBABLE CONTAMINATION. Most Recent Lab Values WBC 13.2 K/uL (4.8-10.8) H 10/21/18 06:32 RBC 4.48 Mil/uL (4.40-5.90) 10/21/18 06:32 Hgb 13.5 g/dL (12.0-18.0) 10/21/18 06:32 Hct 40.8 % (35.0-51.0) 10/21/18 06:32 MCV 91.2 fL (80.0-94.0) 10/21/18 06:32 MCH 30.2 pg (27.0-31.0) 10/21/18 06:32 MCHC 33.1 g/dL (33.0-37.0) 10/21/18 06:32 RDW 13.6 % (11.5-14.5) 10/21/18 06:32 Plt Count 263 K/uL (130-400) 10/21/18 06:32 MPV 8.9 fL (7.2-11.7) 10/21/18 06:32 Neut % (Auto) 78.9 % (50.0-75.0) H 10/21/18 06:32 Lymph % (Auto) 12.9 % (20.0-40.0) L 10/21/18 06:32 [place] % (Auto) 7.8 % (0.0-10.0) 10/21/18 06:32 Eos % (Auto) 0.1 % (0.0-4.0) 10/21/18 06:32 Baso % (Auto) 0.3 % (0.0-2.0) 10/21/18 06:32 Neut # (Auto) 10.4 K/uL (1.8-7.0) H 10/21/18 06:32 Lymph # (Auto) 1.7 K/uL (1.0-4.3) 10/21/18 06:32 [place] # (Auto) 1.0 K/uL (0.0-0.8) H 10/21/18 06:32 Eos # (Auto) 0.0 K/uL (0.0-0.7) 10/21/18 06:32 Baso # (Auto) 0.0 K/uL (0.0-0.2) 10/21/18 06:32 Neutrophils % (Manual) 87 % (50-75) H 10/17/18 07:43 Band Neutrophils % 1 % (0-2) 10/17/18 07:43 Lymphocytes % (Manual) 7 % (20-40) L 10/17/18 07:43 Monocytes % (Manual) 5 % (0-10) 10/17/18 07:43 Toxic Granulation Present 10/17/18 07:43 Platelet Estimate Normal (NORMAL) 10/17/18 07:43 Large Platelets Present 10/17/18 07:43 Polychromasia Slight 10/17/18 07:43 Hypochromasia (manual) Slight 10/17/18 07:43 Anisocytosis (manual) Slight 10/17/18 07:43 PT 11.9 SECONDS (9.7-12.2) 10/12/18 16:05 INR 1.1 10/12/18 16:05 APTT 32 SECONDS (21-34) 10/12/18 16:05 Sodium 134 mmol/L (132-148) 10/21/18 06:32 Potassium 5.1 mmol/L (3.6-5.2) 10/21/18 06:32 Chloride 98 mmol/L (98-107) 10/21/18 06:32 Carbon Dioxide 29 mmol/L (22-30) 10/21/18 06:32 Anion Gap 12 (10-20) 10/21/18 06:32 BUN 33 mg/dL (9-20) H 10/21/18 06:32 Creatinine 1.3 mg/dL (0.8-1.5) 10/21/18 06:32 Est GFR ( Amer) > 60 10/21/18 06:32 Est GFR (Non-Af Amer) 55 10/21/18 06:32 POC Glucose (mg/dL) 365 mg/dL (65-110) H 10/20/18 21:07 Random Glucose 288 mg/dL (75-110) H D 10/21/18 06:32 Hemoglobin A1c 11.5 % (4.2-6.5) H 10/13/18 07:41 Calcium 10.1 mg/dl (8.6-10.4) 10/21/18 06:32 Phosphorus 4.2 mg/dL (2.5-4.5) 10/18/18 07:39 Magnesium 2.1 mg/dL (1.6-2.3) 10/18/18 07:39 Total Bilirubin 0.5 mg/dL (0.2-1.3) 10/21/18 06:32 AST 24 U/L (17-59) 10/21/18 06:32 ALT 22 U/L (21-72) 10/21/18 06:32 Alkaline Phosphatase 62 U/L (38-126) 10/21/18 06:32 Total Creatine Kinase 211 U/L (55-170) H 10/12/18 16:05 CK-MB (Mass) 2.32 ng/mL (0.0-3.38) 10/12/18 16:05 Troponin I < 0.0120 ng/mL (0.00-0.120) 10/12/18 16:05 NT-Pro-B Natriuret Pep 79.4 pg/mL (0-900) 10/12/18 16:05 Total Protein 7.3 g/dL (6.3-8.3) 10/21/18 06:32 Albumin 4.3 g/dL (3.5-5.0) 10/21/18 06:32 Globulin 3.0 gm/dL (2.2-3.9) 10/21/18 06:32 Albumin/Globulin Ratio 1.4 (1.0-2.1) 10/21/18 06:32 Triglycerides 210 mg/dL (0-149) H 10/13/18 07:41 Cholesterol 126 mg/dL (0-199) 10/13/18 07:41 LDL Cholesterol Direct 63 mg/dL (0-129) 10/13/18 07:41 HDL Cholesterol 44 mg/dL (30-70) 10/13/18 07:41 Vitamin B12 972 pg/mL (239-931) H 10/13/18 07:41 Urine Color Yellow (YELLOW) 10/12/18 17:16 Urine Clarity Hazy (Clear) 10/12/18 17:16 Urine pH 5.0 (5.0-8.0) 10/12/18 17:16 Ur Specific [place] 1.022 (1.003-1.030) 10/12/18 17:16 Urine Protein 2+ mg/dL (NEGATIVE) H 10/12/18 17:16 Urine Glucose (UA) 3+ mg/dL (Normal) H 10/12/18 17:16 Urine Ketones Trace mg/dL (NEGATIVE) 10/12/18 17:16 Urine Blood Negative (NEGATIVE) 10/12/18 17:16 Urine Nitrate Negative (NEGATIVE) 10/12/18 17:16 Urine Bilirubin Negative (NEGATIVE) 10/12/18 17:16 Urine Urobilinogen 2.0 mg/dL (0.2-1.0) 10/12/18 17:16 Ur Leukocyte Esterase Neg [place]/uL (Negative) 10/12/18 17:16 Urine WBC (Auto) 1 /hpf (0-5) 10/12/18 17:16 Urine RBC (Auto) 1 /hpf (0-3) 10/12/18 17:16 Ur Squamous Epith Cells < 1 /hpf (0-5) 10/12/18 17:16 RPR Nonreactive (NONREACTIVE) 10/13/18 07:41 - Hospital Course Hospital Course: Upon Admission: 68 year old male with past medical history of Diabetes Type II; HTN; Stroke (2018); HLD; Glaucoma; neuropathy presents to the ER with lower extremity weakness. Patient states for the past few months he has been having difficulty walking. However, the last 3 weeks he feels like he cannot stand by himself as his legs feel week. He states he usually uses a 3-point cane but that has not been helping him at all. He denies chest pain, shortness of breath, palpitations, nausea, vomiting, fever, chills, diarrhea or constipation. Patient was admitted for upper and lower extremity weakness. Hospital Course: Imaging showed: - MRI L-Spine: grade 1 spondylolisthesis causing high grade stenosis in L4-5. gross facet joint degenrative arthropathy - Head CT: No intracranial hemorrhage. Generalized atrophy. Scattered nonspecific white matter changes. 3 mm right basal ganglia lacunar type infarct appears chronic. - Venous doppler LE: no evidence of DVT or superficial vein thrombosis b/l - CT L-spine as per Neurosurgery: less than grade 1-grade 1 anterior listhesis at the L4-L5 level. Uncovering of the posterior superior surface of the disc with superior subligamentous extension of disc material over short distance dorsal to the posterior aspect of the L4 segment and severe central canal stenosis at this level are less well seen on this exam as compared to high- resolution MRI. Degenerative spondylosis also noted at the L5-S1 and L3-L4 levels and to a lesser degree the remaining levels also seen to better advantage on prior MRI. Please refer to that study and corresponding report for additional details. Questionable wall thickening of the posterior inferior margin of the urinary bladder possibly to some encroachment of the prostate gland. Possibility of intrinsic/invasive bladder bladder wall lesion not excluded. Consider follow-up urologic consultation and urinalysis. - MRI C-spine: multilevel degenerative disc disease worse at C4-5 with broad- based disc osteophyte complex and moderate ligamentum flavom infolding with severe spinal canal stenosis. No intrinsic cord signal abnormality. Congenitally narrow spinal canal. Neurology was consulted and recommended neurosurgery consult with high dose decadron. Neurosurgery was consulted and performed a laminectomy on L4/5 on 10/19/18. Cardiology was consulted prior to surgery and provided medical evaluation for optimization. Patient tolerated procedure and decadron was tapered. PT/OT recommended [facility]. patient was deemed stable for discharge. Upon Discharge: Patient was deemed stable for d/c to [facility]. He was given prescriptions and instructions to follow up with Dr. Duque after discharge from [facility]. Patient understood instructions and agreed. Discharge Exam - Head Exam Head Exam: ATRAUMATIC, NORMAL INSPECTION, NORMOCEPHALIC - Eye Exam Eye Exam: EOMI, Normal appearance, PERRL Pupil Exam: NORMAL ACCOMODATION - Respiratory Exam Respiratory Exam: Clear to PA & Lateral, NORMAL BREATHING PATTERN. absent: Rales, Rhonchi, Wheezes - Cardiovascular Exam Cardiovascular Exam: REGULAR RHYTHM, +S1, +S2. absent: Gallop, Rubs, Systolic Murmur - GI/Abdominal Exam GI & Abdominal Exam: Normal Bowel Sounds, Soft. absent: Distended, Tenderness - Extremities Exam Extremities exam: normal inspection - Neurological Exam Neurological exam: Abnormal Gait, Alert, CN II-XII Intact, Oriented x3 - Psychiatric Exam Psychiatric exam: Normal Affect, Normal Mood - Skin Skin Exam: Dry Discharge Plan - Discharge Medications Prescriptions: Dexamethasone [Decadron] 0.5 mg PO Q12H #3 tab Dexamethasone [Decadron] 0.75 mg PO Q12H 1 Days #2 tab Dexamethasone [Decadron] 1 mg PO Q12H 1 Days #2 tab - Follow Up Plan Condition: STABLE Disposition: REHAB FACILITY/REHAB UNIT Additional Instructions: Please follow up with Dr. Duque after discharge from the rehab facility. Please take medications as prescribed: Aspirin 81mg PO daily Lantus 40u SC HS Crestor 10mg PO HS Enalapril 20mg PO daily Tylenol 650mg PO q6h PRN pain Dexamethasone 1mg PO q12h for 1 day THEN 0.75mg PO q12h for 1 day THEN 0.5mg PO q12h for 1 day THEN 0.5mg PO daily for 1 day Novolin 70/30 20u SC daily Glipizide 5mg PO BID Metformin 1000mg PO BID Januvia 100mg PO daily If symptoms worsen, please return to the emergency department. Take care and be well.
[2018-10-21 16:00] VITALS: BP 142/67; PULSE 85; TEMP 99; O2SAT 97
== END 2018-10-21 17:56 | DRG 516 ==
LOC: C.ER 14:34 → OBSVTOIN 16:54 → C.9E 16:54 → C.6T 17:44
PROVIDERS: ADMIT Internal Medicine; ATTEND Internal Medicine
PROC: 01NB0ZZ Release Lumbar Nerve, Open Approach (ICD-10-PCS; principal; 2018-10-20)
DX: M43.16 Spondylolisthesis, lumbar region (principal); G83.4 Cauda equina syndrome; M48.061 Spinal stenosis, lumbar region without neurogenic claudication; M25.78 Osteophyte, vertebrae; E11.40 Type 2 diabetes mellitus with diabetic neuropathy, unspecified; I10 Essential (primary) hypertension; M48.02 Spinal stenosis, cervical region; R26.2 Difficulty in walking, not elsewhere classified; E78.5 Hyperlipidemia, unspecified; E78.00 Pure hypercholesterolemia, unspecified; R29.6 Repeated falls; H40.9 Unspecified glaucoma; Z86.73 Personal history of transient ischemic attack (TIA), and cerebral infarction without residual deficits; Z87.891 Personal history of nicotine dependence; Z79.82 Long term (current) use of aspirin; Z89.421 Acquired absence of other right toe(s); Z90.49 Acquired absence of other specified parts of digestive tract

== ENCOUNTER 2018-12-28 07:31 | Outpatient (CLI) | payer MEDICARE, OTHER | END 2018-12-28 07:32 | disposition home or self-care (01) | LOC: C.MRIC 07:31 ==